=== PATIENT | male | born 1980 | race Caucasian/White ===

== ENCOUNTER 2016-08-16 20:13 | Inpatient (IN) | payer OTHER, MEDICARE, MEDICAID ==
[2016-08-16 20:36] LABS: AUTOMATED NEUTROPHIL # 6.8 TH/MM3 (1.8-7.7); BASOPHIL # 0.1 TH/MM3 (0-0.2); EOSINOPHIL # 0.2 TH/MM3 (0-0.4); HEMATOCRIT 35.7 % (39.0-51.0); HEMO FLAGS DIFF FINAL; LYMPH % 33.9 % (9.0-44.0); LYMPHOCYTE # 4.2 TH/MM3 (1.0-4.8); MEAN CELL VOLUME 84.1 FL (80.0-100.0); MEAN CORPUSCULAR HEMOGLOBIN 29.4 PG (27.0-34.0); MEAN CORPUSCULAR HGB CONC 34.9 % (32.0-36.0); MONO % 8.5 % (0.0-8.0); NEUT % 54.6 % (16.0-70.0); PLATELET COUNT 309 TH/MM3 (150-450); RED BLOOD COUNT 4.25 MIL/MM3 (4.50-5.90); RED CELL DISTRIBUTION WIDTH 13.5 % (11.6-17.2); WHITE BLOOD COUNT 12.4 TH/MM3 (4.0-11.0)
[2016-08-16 20:40] VITALS: O2SAT 100
[2016-08-16 20:46] LABS: APTT (PATIENT) 25.8 SEC (24.3-30.1); PROTHROMBIN TIME - PATIENT 10.9 SEC (9.8-11.6)
[2016-08-16] MEDS ORDERED: ceFAZolin 2 GM PREMIX 50 ML IV ONE (21:00)
[2016-08-16] MEDS ORDERED: SODIUM CHLOR 0.9% 1000 ML INJ 1,000 ML IV ONE ×2 (21:00→22:15)
[2016-08-16] MEDS ORDERED: SUCCINYLCHOLINE CHLORIDE 200 MG/10 ML VIAL IV ONE (21:00)
[2016-08-16] MEDS ORDERED: DIPHTH/TETANUS/ACEL PERTUSSIS (BOOSTER) 0.5 ML VIAL/PFS IM ONE (21:00)
[2016-08-16] MEDS ORDERED: MANNITOL 12.5 GM/50 ML VIAL IV ONE (21:15)
[2016-08-16] MEDS ORDERED: SODIUM CHLOR 0.9% 1000 ML INJ 1,000 ML IV SCH (21:15)
[2016-08-16 21:17] LABS: BLOOD GAS CARBOXYHEMOGLOBIN 4.6 % (0-4); BLOOD GAS HCO3 18 mmol/L (22-26); BLOOD GAS METHEMOGLOBIN 1.1 % (0-2); BLOOD GAS O2 HGB SATURATION 94 % (90-100); BLOOD GAS OXYGEN CONTENT 14.8 Vol % (12.0-20.0); BLOOD GAS PCO2 39 mmHg (38-42); BLOOD GAS PO2 579 mmHg (61-120); CRITICAL VALUE YES; DRAW SITE LT RADIAL; FIO2 100 %; NUMBER OF ARTERIAL PUNCTURES 1; OXYGEN DEVICE VENTILATOR; STAT YES; TEMP CORR TO 98.6; ULNAR PULSE PRESENT; VENT SETTINGS PRVC/26/550/1.0/+8
[2016-08-16 21:19] LABS: ANION GAP 10 MEQ/L (5-15); AST (GOT) 153 U/L (15-37); BICARBONATE 23.9 MEQ/L (21.0-32.0); BLOOD UREA NITROGEN 11 MG/DL (7-18); CHLORIDE 107 MEQ/L (98-107); GLOMERULAR FILTRATION RATE 68 ML/MIN (>89); POTASSIUM 4.1 MEQ/L (3.5-5.1); SODIUM (NA) 141 MEQ/L (136-145)
[2016-08-16 21:30] LABS: ALKALINE PHOSPHATASE 100 U/L (45-117); ALT (GPT) 76 U/L (12-78); TOTAL BILIRUBIN ADULT 0.4 MG/DL (0.2-1.0)
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
[2016-08-16] MEDS ORDERED: IOHEXOL 350 MG/ML 10 ML VIAL (for RAD DIAG) IV ONE (21:33)
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
[2016-08-16 21:42] LABS: AMPHETAMINE, URINE NEG (NEG); BARBITURATES, URINE NEG (NEG); COCAINE, URINE POS (NEG)
[2016-08-16] MEDS ORDERED: PANTOPRAZOLE SODIUM 40 MG VIAL IVP SCH (21:45)
[2016-08-16] MEDS ORDERED: SODIUM CHLORIDE 0.9% FLUSH 5 ML FLUSH IVF PRN (21:45)
[2016-08-16] MEDS ORDERED: MAGNESIUM HYDROXIDE SUSP 30 ML CUP PO PRN (21:45)
[2016-08-16] MEDS ORDERED: MISCELLANEOUS NURSING INFORMATION XX SCH ×2 (21:45→23:45)
[2016-08-16] MEDS ORDERED: CHLORHEXIDINE GLUCONATE 2 % 1 PACK (2 CLOTHS) TOP PRN ×2 (21:45→23:45)
[2016-08-16] MEDS ORDERED: ONDANSETRON HCL 4 MG/2 ML VIAL IV PRN ×2 (21:45→23:45)
[2016-08-16] MEDS ORDERED: MIDAZOLAM HCL 5 MG/ML VIAL (1 ML) ONE (21:48)
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
[2016-08-16] MEDS ORDERED: PROPOFOL 1000 MG/100 ML INJ 100 ML ONE (21:59)
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
[2016-08-16] MEDS ORDERED: NOREPINEPHRINE 4 MG/4 ML AMP ONE (22:07)
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
[2016-08-16] MEDS ORDERED: NOREPINEPHRINE INJ 4 MG in SODIUM CHLOR 0.9% 250 ML INJ 246 ML IV SCH (22:15)
[2016-08-16] MEDS ORDERED: TERBUTALINE INJ 1 MG/ML AMP SQ PRN (22:15)
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
--- NOTE | 2016-08-16 22:47 | PD.OP ---
Operative Report Date of Surgery: Aug 16, 2016 Preoperative Diagnosis: (1) Diffuse axonal brain injury (2) SAH (subarachnoid hemorrhage) Postoperative Diagnosis: (1) Diffuse axonal brain injury (2) SAH (subarachnoid hemorrhage) Procedure: Placement of right frontal ICP monitor Anesthesia: IV and local sedation with 1/5 % lidocaine 3cc and iV propofol Surgeon: Agusto Hammer Netezza Architect(s): RN Operation and Findings: Initial ICP 3 with temp of 30.3 deg Agusto Hammer Aug 16, 2016 22:47
--- NOTE | 2016-08-16 23:23 | PD.PROCEDR ---
Procedure Note Procedure DATE: 08/16/16 CENTRAL LINE PLACEMENT: Right internal jugular vein. Ultrasound-guided INDICATION: Central venous access CONSENT CT was done emergently as patient is in extremis and he has a Arnaldo Machado without available capacitated healthcare surrogate to consent DESCRIPTION OF THE PROCEDURE The patient was placed in supine position, mild Trendelenburg. The skin was cleansed with Chloraprep 3. Additional barrier precautions included large sterile drape, sterile gloves, sterile gown, face mask, and hat. 1 % lidocaine was used for local anesthesia. Initial attempt at right subclavian site resulted in flash of venous blood without sustained flash so redirected attention to right IJ site. Under direct ultrasound guidance, the R IJ was noted to be collapsible. On first attempt, the vein was accessed with an introducer needle but wire did not thread. The vein was then accessed again on one attempt and the guide wire was advanced and the tract was dilated. Using Seldinger technique a 7 Maltese 20 cm antimicrobial coated triple-lumen catheter was advanced to a depth of 18 centimeters. The guide wire was removed. All ports had good return of dark venous blood and flushed easily with saline. The central line was secured with 2.0 silk. A sterile antimicrobial dressing was applied. ESTIMATED BLOOD LOSS: Minimal COMPLICATIONS: No apparent complications. STAT chest x-ray is pending. Claudine Ramirez MD Aug 16, 2016 23:23
[2016-08-16] MEDS ORDERED: MAGNESIUM SULFATE INJ 2 GM in SODIUM CHLORIDE 0.9% INJ 96 ML IV PRN (23:45)
[2016-08-16] MEDS ORDERED: POTASSIUM PHOSPHATE MONOBASIC 500 MG TAB PO/TUBE PRN (23:45)
[2016-08-16] MEDS ORDERED: SODIUM CHLORIDE 0.9% FLUSH 5 ML FLUSH IV FLUSH PRN (23:45)
[2016-08-16] MEDS ORDERED: MAGNESIUM SULFATE INJ 4 GM in SODIUM CHLORIDE 0.9% INJ 92 ML IV PRN (23:45)
[2016-08-16] MEDS ORDERED: MAGNESIUM OXIDE 400 MG TAB PO PRN (23:45)
[2016-08-16] MEDS ORDERED: SODIUM CHLORIDE 23.4% INJ 240 MEQ in SYRINGE/BAG 1 EA IV ONE (23:45)
[2016-08-16] MEDS ORDERED: DOCUSATE SODIUM 100 MG CAP TUBE SCH (23:45)
[2016-08-16] MEDS ORDERED: POTASSIUM CL 40 MEQ/30 ML LIQ UDC PO/TUBE PRN ×2 (23:45)
[2016-08-16] MEDS ORDERED: RESP: ALBUTEROL 2.5 MG/3 ML NEB (PRN) INH (23:45)
[2016-08-16] MEDS ORDERED: POTASSIUM PHOSPHATE MONOBASIC 500 MG TAB PO PRN (23:45)
[2016-08-16] MEDS ORDERED: SODIUM PHOSPHATE INJ 30 MMOL in SODIUM CHLOR 0.9% 250 ML INJ 240 ML IV PRN (23:45)
[2016-08-16] MEDS: 3% SALINE INJ 500 ML IV SCH (23:48)
--- NOTE | 2016-08-16 23:50 | RADRPT ---
EXAM DATE/TIME: 08/16/2016 23:28 [facility] COMPARISON: CT THORAX W CONTRAST, August 16, 2016, 20:37. INDICATIONS : Central line placement. MEDICAL HISTORY : Unobtainable. SURGICAL HISTORY : Unobtainable. ENCOUNTER: Subsequent ACUITY: 1 day PAIN SCORE: Non-responsive. LOCATION: Bilateral chest FINDINGS: Lungs appear reasonably clear. The mild upper lobe consolidation on the left and basilar consolidatio n on the right evident by CT not clearly seen on this x-ray. No pleural effusion. No perceptible pneu mothorax. Heart size stable, normal. Patient remains intubated. Endotracheal tube tip is about 3 cm above the susan. A nasogastric tube w ith tip in the stomach remains in place. The side hole is several centimeters below the GE junction. There is gastric distention noted and was also present on the CT. A new right internal jugular central venous catheter has been placed with tip at the atrial caval shawn ction. CONCLUSION: 1. New right IJ central venous catheter with tip at atriocaval junction. No pneumothorax or other acu te complication. 2. Endotracheal tube and nasogastric tube remain in place. Distended stomach. Is the NG tube hooked t o suction? 3. Radiographically clear lungs. Arnaldo Mendez MD on August 16, 2016 at 23:46 Board Certified Radiologist. This report was verified electronically.
[2016-08-16] MEDS: SODIUM CHLOR 0.9% 1000 ML INJ 1,000 ML IV SCH (23:51)
[2016-08-17] VITALS (11 sets, daily range): BP systolic 130–154; BP diastolic 70–85; PULSE 74–82; RESP 18–19; TEMP 99.3–100.2; O2SAT 100
[2016-08-17] MEDS: fentaNYL DRIP 250 ML IV SCH
[2016-08-17] MEDS: MIDAZOLAM HCL 2 MG/2 ML VIAL IV PUSH PRN (00:04)
[2016-08-17] MEDS ORDERED: SODIUM CHLORIDE 23.4% INJ 240 MEQ in SYRINGE/BAG 1 EA IV PRN (01:45)
[2016-08-17 01:59] LABS: HEMATOCRIT 28.8 % (39.0-51.0); REVIEW FLAG FINAL
[2016-08-17] MEDS: PROPOFOL 1000 MG/100 ML INJ 100 ML IV SCH ×4 (03:30→19:58)
[2016-08-17] MEDS ORDERED: CHLORHEXIDINE GLUCONATE 2 % 1 PACK (2 CLOTHS) TOP SCH (04:00)
[2016-08-17] MEDS: CHLORHEXIDINE GLUCONATE 2 % 1 PACK (2 CLOTHS) TOP SCH (04:00)
[2016-08-17 05:12] LABS: BLOOD GAS BASE EXCESS -2.5 mmol/L (-2-2); BLOOD GAS CARBOXYHEMOGLOBIN 1.1 % (0-4); BLOOD GAS HCO3 21 mmol/L (22-26); BLOOD GAS O2 HGB SATURATION 97 % (90-100); BLOOD GAS OXYGEN CONTENT 14.3 Vol % (12.0-20.0); BLOOD GAS PCO2 33 mmHg (38-42); BLOOD GAS PO2 184 mmHg (61-120); BLOOD GAS TOTAL HGB 10.1 G/DL (12.0-16.0); CRITICAL VALUE NO; DRAW SITE ALINE; FIO2 40 %; OXYGEN DEVICE VENTILATOR; STAT NO; TEMP CORR TO 98.6; ULNAR PULSE PRESENT; VENT SETTINGS PRVC/22/550/0.9/+5
[2016-08-17 06:01] LABS: AUTOMATED NEUTROPHIL # 6.8 TH/MM3 (1.8-7.7); BASOPHIL % 0.3 % (0.0-2.0); EOSINOPHIL # 0.1 TH/MM3 (0-0.4); EOSINOPHIL % 0.7 % (0.0-4.0); HEMATOCRIT 27.5 % (39.0-51.0); HEMO FLAGS DIFF FINAL; LYMPHOCYTE # 1.1 TH/MM3 (1.0-4.8); MEAN CELL VOLUME 83.5 FL (80.0-100.0); MEAN CORPUSCULAR HEMOGLOBIN 29.3 PG (27.0-34.0); MONO % 7.2 % (0.0-8.0); NEUT % 78.8 % (16.0-70.0); PLATELET COUNT 202 TH/MM3 (150-450); RED BLOOD COUNT 3.29 MIL/MM3 (4.50-5.90); RED CELL DISTRIBUTION WIDTH 13.5 % (11.6-17.2); WHITE BLOOD COUNT 8.7 TH/MM3 (4.0-11.0)
--- NOTE | 2016-08-17 06:05 | RADRPT ---
EXAM DATE/TIME: 08/17/2016 05:00 [facility] COMPARISON: CHEST SINGLE AP, August 16, 2016, 23:28. INDICATIONS : Evaluate after respiratory failure. MEDICAL HISTORY : None. SURGICAL HISTORY : None. ENCOUNTER: Subsequent ACUITY: 2 days PAIN SCORE: Non-responsive. LOCATION: Bilateral chest FINDINGS: No infiltrate, effusion or pneumothorax. Heart size stable, within normal limits. Endotracheal tube tip is about 3 cm above the susan. Nasogastric tube has its tip in the stomach. Th ere is a right internal jugular central venous catheter again seen, tip at the atriocaval junction. CONCLUSION: Lungs remain clear. No change lines and tubes. Arnaldo Mendez MD on August 17, 2016 at 6:03 Board Certified Radiologist. This report was verified electronically.
[2016-08-17 06:28] LABS: ALKALINE PHOSPHATASE 94 U/L (45-117); ALT (GPT) 63 U/L (12-78); ANION GAP 9 MEQ/L (5-15); AST (GOT) 129 U/L (15-37); BICARBONATE 21.8 MEQ/L (21.0-32.0); BLOOD UREA NITROGEN 10 MG/DL (7-18); CHLORIDE 115 MEQ/L (98-107); GLOMERULAR FILTRATION RATE 102 ML/MIN (>89); POTASSIUM 3.5 MEQ/L (3.5-5.1); SODIUM (NA) 146 MEQ/L (136-145); TOTAL BILIRUBIN ADULT 0.4 MG/DL (0.2-1.0)
[2016-08-17] MEDS: CHLORHEXIDINE 0.12% (ORAL KIT) 15 ML CUP MT SCH ×2 (07:42→21:38)
[2016-08-17] MEDS: SODIUM CHLOR 0.9% 1000 ML INJ 1,000 ML IV SCH ×2 (07:42→17:43)
[2016-08-17] MEDS ORDERED: NOREPINEPHRINE INJ 4 MG in SODIUM CHLOR 0.9% 250 ML INJ 246 ML IV SCH (08:00)
[2016-08-17] MEDS ORDERED: RESP: ALBUTEROL 2.5 MG/3 ML NEB (PRN) NEB (08:00)
[2016-08-17] MEDS: INSULIN ASPART SUPPLEMENTAL SCALE SQ SCH ×3 (08:00→20:00)
[2016-08-17] MEDS ORDERED: GLUCAGON 1 MG/ML VIAL OTHER PRN (08:00)
[2016-08-17] MEDS: DOCUSATE SODIUM 100 MG/10 ML UDC TUBE SCH ×2 (08:16→21:38)
[2016-08-17] MEDS: PANTOPRAZOLE SODIUM 40 MG VIAL IV SCH (08:16)
[2016-08-17] MEDS: SODIUM CHLORIDE 0.9% FLUSH 5 ML FLUSH IV FLUSH SCH ×2 (08:17→21:00)
[2016-08-17] MEDS ORDERED: ATROPINE SULFATE 1 MG/10 ML SYRINGE ONE (08:28)
[2016-08-17] MEDS ORDERED: LIDOCAINE HCL 2% 100 MG/5 ML SYRINGE ONE (08:28)
[2016-08-17] MEDS ORDERED: EPINEPHrine HCL (1:10,000) 1 MG/10 ML SYRINGE ONE (08:28)
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
[2016-08-17] MEDS ORDERED: IOHEXOL 350 MG/ML 10 ML VIAL (for RAD DIAG) IV ONE (09:00)
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
[2016-08-17] MEDS: levETIRAcetam INJ 500 MG in SODIUM CHLORIDE 0.9% INJ 100 ML IV SCH ×2 (09:39→21:38)
[2016-08-17] MEDS: MUPIROCIN 2% OINT 1 APPLIC/GM SYR EACH NARE SCH ×2 (09:39→21:38)
[2016-08-17] MEDS: RESP: ALBUTEROL 2.5 MG/IPRATROPIUM 0.5 MG NEB (SCH) NEB ×3 (10:00→20:38)
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
[2016-08-17] MEDS: ACETAMINOPHEN 650 MG/20.3 ML UDC TUBE PRN (16:49)
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
[2016-08-18] VITALS (15 sets, daily range): BP systolic 115–142; BP diastolic 53–70; PULSE 54–74; RESP 18–20; TEMP 97.2–99.5; O2SAT 100
[2016-08-18] MEDS: BACITRACIN TOP OINT 15 GM TUBE TOP SCH ×3 (00:01→20:50)
[2016-08-18] MEDS: INSULIN ASPART SUPPLEMENTAL SCALE SQ SCH ×4 (02:00→20:00)
[2016-08-18] MEDS: SODIUM CHLOR 0.9% 1000 ML INJ 1,000 ML IV SCH ×3 (03:31→23:31)
[2016-08-18] MEDS: PROPOFOL 1000 MG/100 ML INJ 100 ML IV SCH ×3 (03:40→18:01)
[2016-08-18] MEDS: RESP: ALBUTEROL 2.5 MG/IPRATROPIUM 0.5 MG NEB (SCH) NEB ×4 (03:53→21:25)
[2016-08-18] MEDS: CHLORHEXIDINE GLUCONATE 2 % 1 PACK (2 CLOTHS) TOP SCH (04:00)
[2016-08-18] MEDS: fentaNYL DRIP 250 ML IV SCH ×2 (05:00→08:44)
[2016-08-18 05:24] LABS: BLOOD GAS BASE EXCESS -1.6 mmol/L (-2-2); BLOOD GAS HCO3 23 mmol/L (22-26); BLOOD GAS METHEMOGLOBIN 1.1 % (0-2); BLOOD GAS O2 HGB SATURATION 97 % (90-100); BLOOD GAS OXYGEN CONTENT 11.2 Vol % (12.0-20.0); BLOOD GAS PCO2 42 mmHg (38-42); BLOOD GAS PO2 170 mmHg (61-120); BLOOD GAS TOTAL HGB 7.9 G/DL (12.0-16.0); CRITICAL VALUE NO; DRAW SITE ALINE; FIO2 40 %; OXYGEN DEVICE VENTILATOR; STAT NO; TEMP CORR TO 98.6; ULNAR PULSE PRESENT; VENT SETTINGS PRVC/18/550/0.8/+5
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
[2016-08-18 05:29] LABS: HEMATOCRIT 22.7 % (39.0-51.0); MEAN CORPUSCULAR HEMOGLOBIN 29.8 PG (27.0-34.0); MEAN CORPUSCULAR HGB CONC 35.1 % (32.0-36.0); PLATELET COUNT 149 TH/MM3 (150-450); RED BLOOD COUNT 2.67 MIL/MM3 (4.50-5.90); RED CELL DISTRIBUTION WIDTH 13.7 % (11.6-17.2); REVIEW FLAG FINAL; WHITE BLOOD COUNT 8.2 TH/MM3 (4.0-11.0)
[2016-08-18 06:47] LABS: BICARBONATE 23.1 MEQ/L (21.0-32.0); POTASSIUM 3.7 MEQ/L (3.5-5.1)
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
[2016-08-18] MEDS: CHLORHEXIDINE 0.12% (ORAL KIT) 15 ML CUP MT SCH ×2 (08:00→20:13)
[2016-08-18] MEDS: levETIRAcetam INJ 500 MG in SODIUM CHLORIDE 0.9% INJ 100 ML IV SCH ×2 (08:43→20:50)
[2016-08-18] MEDS: MUPIROCIN 2% OINT 1 APPLIC/GM SYR EACH NARE SCH ×2 (08:43→20:50)
[2016-08-18] MEDS: PANTOPRAZOLE SODIUM 40 MG VIAL IV SCH (08:44)
[2016-08-18] MEDS: 3% SALINE INJ 500 ML IV SCH (08:44)
[2016-08-18] MEDS: SODIUM CHLORIDE 0.9% FLUSH 5 ML FLUSH IV FLUSH SCH ×2 (08:44→20:45)
[2016-08-18] MEDS: DOCUSATE SODIUM 100 MG/10 ML UDC TUBE SCH ×2 (08:44→20:50)
--- NOTE | 2016-08-18 08:55 | PD.OP ---
cc: Carson Corona MD Operative Report Date of Surgery: Aug 18, 2016 Preoperative Diagnosis: left acetabular fracture with hip dislocation Postoperative Diagnosis: Procedure: closed reduction of left hip fracture dislocation with manipulation and placement of skeletal traction Anesthesia: General Surgeon: Carson Corona Tractor Mechanic Helper(s): Alden MERCADO Operation and Findings: Renny was seen and evaluated. CT scan yesterday revealed recurrent hip dislocation with acetabular fracture. Informed consent was obtained from patient's father. Timeout procedure was performed. The procedure was performed in the intensive care unit because of patient's severe closed head injury. Patient was not cleared for open surgical treatment of injuries. Skin was prepped with alcohol followed by ChloraPrep. A small incision was made over the distal femur. A skeletal traction pin was now placed into the distal femur. Care was taken to avoid injury to neurovascular structures. At this point the hip was now reduced. Traction was applied, and the hip was manipulated into a reduced position. Skeletal traction was now applied. Dressings were applied. Patient will need definitive fixation of his left acetabulum and right femur when he is medically stable. Carson Corona MD Aug 18, 2016 08:55
[2016-08-18 09:08] LABS: BLOOD GAS BASE EXCESS -1.3 mmol/L (-2-2); BLOOD GAS CARBOXYHEMOGLOBIN 1.2 % (0-4); BLOOD GAS HCO3 23 mmol/L (22-26); BLOOD GAS METHEMOGLOBIN 0.9 % (0-2); BLOOD GAS O2 HGB SATURATION 97 % (90-100); BLOOD GAS OXYGEN CONTENT 11.7 Vol % (12.0-20.0); BLOOD GAS PCO2 38 mmHg (38-42); BLOOD GAS PO2 166 mmHg (61-120); BLOOD GAS TOTAL HGB 8.3 G/DL (12.0-16.0); CRITICAL VALUE NO; DRAW SITE ART LINE; FIO2 40 %; OXYGEN DEVICE VENTILATOR; STAT NO; TEMP CORR TO 98.6; ULNAR PULSE PRESENT; VENT SETTINGS PRVC/20/550/IT0.9/+5
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
[2016-08-18 14:45] LABS: BICARBONATE 24.3 MEQ/L (21.0-32.0); MAGNESIUM 2.3 MG/DL (1.5-2.5); POTASSIUM 3.7 MEQ/L (3.5-5.1)
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
[2016-08-19] VITALS (17 sets, daily range): BP systolic 109–132; BP diastolic 49–67; PULSE 53–66; RESP 20; TEMP 97.2–100.2; O2SAT 97–100
[2016-08-19] MEDS: INSULIN ASPART SUPPLEMENTAL SCALE SQ SCH ×4 (01:44→20:00)
[2016-08-19] MEDS: 3% SALINE INJ 500 ML IV SCH (01:55)
[2016-08-19] MEDS: RESP: ALBUTEROL 2.5 MG/IPRATROPIUM 0.5 MG NEB (SCH) NEB ×4 (02:55→20:24)
[2016-08-19] MEDS: CHLORHEXIDINE GLUCONATE 2 % 1 PACK (2 CLOTHS) TOP SCH (04:00)
[2016-08-19] MEDS: PROPOFOL 1000 MG/100 ML INJ 100 ML IV SCH ×2 (04:17→14:40)
[2016-08-19 05:06] LABS: AUTOMATED NEUTROPHIL # 8.6 TH/MM3 (1.8-7.7); BASOPHIL % 0.4 % (0.0-2.0); EOSINOPHIL # 0.1 TH/MM3 (0-0.4); EOSINOPHIL % 0.8 % (0.0-4.0); LYMPH % 11.5 % (9.0-44.0); LYMPHOCYTE # 1.2 TH/MM3 (1.0-4.8); MEAN CORPUSCULAR HEMOGLOBIN 29.1 PG (27.0-34.0); MEAN CORPUSCULAR HGB CONC 33.8 % (32.0-36.0); MONO % 5.6 % (0.0-8.0); NEUT % 81.7 % (16.0-70.0); PLATELET COUNT 156 TH/MM3 (150-450); RED CELL DISTRIBUTION WIDTH 13.6 % (11.6-17.2); WHITE BLOOD COUNT 10.5 TH/MM3 (4.0-11.0)
[2016-08-19 05:10] LABS: HEMO FLAGS DIFF FINAL
[2016-08-19 05:14] LABS: HEMATOCRIT 20.6 % (39.0-51.0)
[2016-08-19 05:26] LABS: BICARBONATE 26.6 MEQ/L (21.0-32.0); CALCIUM-PROTEIN CORRECTED 8.5 MG/DL (8.5-10.1); MAGNESIUM 2.3 MG/DL (1.5-2.5); POTASSIUM 3.5 MEQ/L (3.5-5.1); TOTAL BILIRUBIN ADULT 0.3 MG/DL (0.2-1.0)
[2016-08-19 05:48] LABS: BLOOD GAS BASE EXCESS -4.5 mmol/L (-2-2); BLOOD GAS CARBOXYHEMOGLOBIN 1.2 % (0-4); BLOOD GAS HCO3 19 mmol/L (22-26); BLOOD GAS O2 HGB SATURATION 97 % (90-100); BLOOD GAS OXYGEN CONTENT 14.6 Vol % (12.0-20.0); BLOOD GAS PCO2 32 mmHg (38-42); BLOOD GAS PO2 164 mmHg (61-120); BLOOD GAS TOTAL HGB 10.5 G/DL (12.0-16.0); CRITICAL VALUE NO; OXYGEN DEVICE VENTILATOR; TEMP CORR TO 98.6
--- NOTE | 2016-08-19 05:48 | RADRPT ---
EXAM DATE/TIME: 08/19/2016 04:23 [place] COMPARISON: CHEST SINGLE AP, August 18, 2016, 5:09. INDICATIONS : Shortness of breath. MEDICAL HISTORY : None. SURGICAL HISTORY : None. ENCOUNTER: Subsequent ACUITY: 4 - 6 days PAIN SCORE: Non-responsive. LOCATION: Bilateral chest FINDINGS: The cardiac silhouette is normal in transverse diameter. Support lines and tubes are in satisfactory position. There is mild perihilar edema. This is new when compared with the prior exam. CONCLUSION: 1. Perihilar pulmonary edema. This is new when compared with the prior exam. Leonidas Franco MD on August 19, 2016 at 5:47 Board Certified Radiologist. This report was verified electronically.
[2016-08-19 05:49] LABS: DRAW SITE ART LINE; FIO2 40 %; STAT NO; VENT SETTINGS PRVC/AC
[2016-08-19] MEDS ORDERED: TERBUTALINE INJ 1 MG/ML AMP SQ PRN (06:45)
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
[2016-08-19] MEDS: CHLORHEXIDINE 0.12% (ORAL KIT) 15 ML CUP MT SCH ×2 (08:00→20:56)
[2016-08-19] MEDS: POTASSIUM PHOSPHATE INJ 30 MMOL in SODIUM CHLOR 0.9% 250 ML INJ 250 ML IV PRN (08:01)
[2016-08-19] MEDS: MUPIROCIN 2% OINT 1 APPLIC/GM SYR EACH NARE SCH ×2 (08:07→20:57)
[2016-08-19] MEDS: BACITRACIN TOP OINT 15 GM TUBE TOP SCH ×2 (08:07→20:57)
[2016-08-19] MEDS: levETIRAcetam INJ 500 MG in SODIUM CHLORIDE 0.9% INJ 100 ML IV SCH ×2 (08:07→21:01)
[2016-08-19] MEDS: PANTOPRAZOLE SODIUM 40 MG VIAL IV SCH (08:07)
[2016-08-19] MEDS: DOCUSATE SODIUM 100 MG/10 ML UDC TUBE SCH ×2 (08:08→21:00)
[2016-08-19] MEDS: SODIUM CHLORIDE 0.9% FLUSH 5 ML FLUSH IV FLUSH SCH ×2 (09:00→20:57)
[2016-08-19] MEDS ORDERED: HEPARIN SODIUM - SQ 10,000 UNITS/ML VIAL ONE (09:37)
[2016-08-19] MEDS ORDERED: GENTAMICIN SULFATE 80 MG/2 ML VIAL ONE (09:37)
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
[2016-08-19] MEDS ORDERED: SODIUM CHLOR 0.9% 250 ML INJ 250 ML IV ONE (11:00)
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
[2016-08-19] MEDS ORDERED: TRANEXAMIC ACID INJ 909 MG in SODIUM CHLORIDE 0.9% INJ 100 ML IV SCH (11:30)
[2016-08-19] MEDS: SODIUM CHLOR 0.9% 1000 ML INJ 1,000 ML IV SCH ×2 (12:45→19:31)
[2016-08-19] MEDS ORDERED: ceFAZolin INJ 1,000 MG VIAL ONE (14:49)
[2016-08-19] MEDS ORDERED: VANCOMYCIN HCL 1000 MG VIAL ONE (14:49)
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
[2016-08-19] MEDS ORDERED: fentaNYL CITRATE 250 MCG/5 ML AMP ONE (16:01)
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
[2016-08-19 18:06] LABS: HEMATOCRIT 26.1 % (39.0-51.0); REVIEW FLAG FINAL
[2016-08-20] VITALS (15 sets, daily range): BP systolic 109–136; BP diastolic 54–74; PULSE 50–68; RESP 18; TEMP 98.8–99.6; O2SAT 96–100
[2016-08-20] MEDS: fentaNYL DRIP 250 ML IV SCH ×2 (00:25→17:17)
[2016-08-20] MEDS: INSULIN ASPART SUPPLEMENTAL SCALE SQ SCH ×4 (02:00→20:00)
[2016-08-20] MEDS: RESP: ALBUTEROL 2.5 MG/IPRATROPIUM 0.5 MG NEB (SCH) NEB ×4 (03:50→21:50)
[2016-08-20] MEDS: CHLORHEXIDINE GLUCONATE 2 % 1 PACK (2 CLOTHS) TOP SCH (04:00)
[2016-08-20] MEDS: SODIUM CHLOR 0.9% 1000 ML INJ 1,000 ML IV SCH ×2 (04:34→22:57)
--- NOTE | 2016-08-20 05:01 | RADRPT ---
EXAM DATE/TIME: 08/20/2016 04:16 [facility] COMPARISON: CHEST SINGLE AP, August 19, 2016, 4:23. INDICATIONS : Shortness of breath. MEDICAL HISTORY : Non-responsive SURGICAL HISTORY : Non-responsive ENCOUNTER: Subsequent ACUITY: 4 - 6 days PAIN SCORE: Non-responsive. LOCATION: Bilateral chest FINDINGS: The cardiac silhouette is enlarged in transverse diameter. There findings of alveolar edema worse piotr n on the prior study. Small bilateral pleural effusions are identified. CONCLUSION: 1. Worsening pulmonary edema. Leonidas Franco MD on August 20, 2016 at 4:59 Board Certified Radiologist. This report was verified electronically.
[2016-08-20 05:28] LABS: BLOOD GAS BASE EXCESS 0.1 mmol/L (-2-2); BLOOD GAS CARBOXYHEMOGLOBIN 1.6 % (0-4); BLOOD GAS HCO3 24 mmol/L (22-26); BLOOD GAS METHEMOGLOBIN 1.1 % (0-2); BLOOD GAS OXYGEN CONTENT 11.5 Vol % (12.0-20.0); BLOOD GAS PCO2 34 mmHg (38-42); BLOOD GAS PO2 109 mmHg (61-120); BLOOD GAS TOTAL HGB 8.4 G/DL (12.0-16.0); TEMP CORR TO 98.6
[2016-08-20 05:29] LABS: BLOOD GAS O2 HGB SATURATION 96 % (90-100); CRITICAL VALUE NO; OXYGEN DEVICE VENTILATOR
[2016-08-20 05:30] LABS: DRAW SITE ART LINE; FIO2 40 %; STAT NO
[2016-08-20 05:36] LABS: AUTOMATED NEUTROPHIL # 7.9 TH/MM3 (1.8-7.7); BASOPHIL % 0.4 % (0.0-2.0); EOSINOPHIL # 0.2 TH/MM3 (0-0.4); EOSINOPHIL % 1.9 % (0.0-4.0); HEMO FLAGS DIFF FINAL; LYMPH % 12.9 % (9.0-44.0); LYMPHOCYTE # 1.3 TH/MM3 (1.0-4.8); MEAN CELL VOLUME 85.6 FL (80.0-100.0); MEAN CORPUSCULAR HEMOGLOBIN 30.5 PG (27.0-34.0); MEAN CORPUSCULAR HGB CONC 35.6 % (32.0-36.0); MONO % 5.4 % (0.0-8.0); NEUT % 79.4 % (16.0-70.0); PLATELET COUNT 165 TH/MM3 (150-450); RED BLOOD COUNT 2.81 MIL/MM3 (4.50-5.90); RED CELL DISTRIBUTION WIDTH 13.7 % (11.6-17.2); WHITE BLOOD COUNT 9.9 TH/MM3 (4.0-11.0)
[2016-08-20 05:57] LABS: ALT (GPT) 31 U/L (12-78); ANION GAP 8 MEQ/L (5-15); AST (GOT) 48 U/L (15-37); BICARBONATE 24.9 MEQ/L (21.0-32.0); BLOOD UREA NITROGEN 14 MG/DL (7-18); CHLORIDE 121 MEQ/L (98-107); GLOMERULAR FILTRATION RATE 168 ML/MIN (>89); MAGNESIUM 2.3 MG/DL (1.5-2.5); POTASSIUM 3.4 MEQ/L (3.5-5.1); SODIUM (NA) 154 MEQ/L (136-145)
[2016-08-20 05:59] LABS: ALKALINE PHOSPHATASE 59 U/L (45-117); TOTAL BILIRUBIN ADULT 0.7 MG/DL (0.2-1.0)
[2016-08-20] MEDS: POTASSIUM PHOSPHATE INJ 30 MMOL in SODIUM CHLOR 0.9% 250 ML INJ 250 ML IV PRN (07:03)
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
[2016-08-20] MEDS: NOREPINEPHRINE INJ 4 MG in SODIUM CHLOR 0.9% 250 ML INJ 246 ML IV SCH ×2 (08:00→22:57)
[2016-08-20] MEDS: CHLORHEXIDINE 0.12% (ORAL KIT) 15 ML CUP MT SCH ×2 (08:00→20:30)
[2016-08-20] MEDS: BACITRACIN TOP OINT 15 GM TUBE TOP SCH ×2 (09:00→20:31)
[2016-08-20] MEDS: SODIUM CHLORIDE 0.9% FLUSH 5 ML FLUSH IV FLUSH SCH ×2 (09:00→20:30)
[2016-08-20] MEDS: PANTOPRAZOLE SODIUM 40 MG VIAL IV SCH (09:48)
[2016-08-20] MEDS: DOCUSATE SODIUM 100 MG/10 ML UDC TUBE SCH ×2 (09:48→20:31)
[2016-08-20] MEDS: levETIRAcetam INJ 500 MG in SODIUM CHLORIDE 0.9% INJ 100 ML IV SCH ×2 (09:48→20:29)
[2016-08-20] MEDS: MUPIROCIN 2% OINT 1 APPLIC/GM SYR EACH NARE SCH ×2 (09:49→20:30)
[2016-08-20] MEDS ORDERED: FUROSEMIDE 40 MG/4 ML VIAL IV PUSH ONE (10:00)
[2016-08-20] MEDS: LACTULOSE SYRUP 20 GM/30 ML CUP PO SCH (10:26)
--- NOTE | 2016-08-20 11:05 | PD.OP ---
Operative Report Date of Surgery: Aug 20, 2016 Preoperative Diagnosis: (1) Nikky-prosthetic femur fracture at tip of prosthesis Postoperative Diagnosis: (1) Nikky-prosthetic femur fracture at tip of prosthesis Procedure: Application of traction pin right femur Surgeon: Gordon Olea Lifter(s): none Operation and Findings: Right Distal femur was prepped with duraprep. An incision was made to the lateral distal femur. A centrally threaded traction pin was placed with sterile technique. An incision was made medially to allow the pin to penetrate the skin. Both sides of the leg were bandaged with xeroform/4x4s/paper tape. A traction bow was placed and the patient was placed into 15lbs of skeletal traction. Gordon Olea Aug 20, 2016 11:04
--- NOTE | 2016-08-20 12:28 | RADRPT ---
EXAM DATE/TIME: 08/20/2016 11:51 [facility] COMPARISON: CHEST SINGLE AP, August 20, 2016, 4:16. INDICATIONS : Dubhoff placement MEDICAL HISTORY : None. SURGICAL HISTORY : None. ENCOUNTER: Subsequent ACUITY: 4 - 6 days PAIN SCORE: Non-responsive. LOCATION: abdomen FINDINGS: The exam demonstrates a weighted feeding tube to be in the stomach. There is a nasogastric tube prese nt within the stomach as well. The bowel gas pattern is within normal limits. The lung bases are mal r. CONCLUSION: 1. The tip of the patient's feeding tube is within the fundus of the stomach. Brandon Davenport MD on August 20, 2016 at 12:26 Board Certified Radiologist. This report was verified electronically.
--- NOTE | 2016-08-20 12:33 | HHI.PR ---
Neuropsych Emotional Emotional: UnabletoAssess: Emotional, Anxious/Fearful, Depressed/Sad, Hostile/ Resentful, Irritable/Angry/Frustrate, Labile, Constricted/Blunted Behavior Behavior: Unable to Asses: Behavior, Coping/Acceptance, Cooperative w/ Treatment, Motivation, Frustration Tolerance/[place], Impulsive/Agitated, Suicidal/ Homicidal Risk Cognitive Cognitive: Unable to Asses: Cognitive, Attention/Concentration, Confused/ Orientation, Insight/Awareness, Judgement/Problem-Solving, Memory Psychosocial Psychosocial: Mild: Psychosocial, Family/Other Adjustment, Realistic Expectation Progress Notes/Response to Tx Contents of Sessions: Level of Consciousness Time with Patient: 30 minutes Premorbid psychological status Premorbid Cognitive, Emotional and Behavioral Status: Stable. The patient has 12 years of education but was on social security disability for a orthopedic injury. 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 Behavioral Reactions of Patient and Family/Support System: Stable. The patient s family is here from [facility], which is where they wish to bring him back to once medically stable. Emotional/Behavioral Status of Patient and Family/Support System: Stable. Pertinent issues, if appropriate to this patients clinical care, are described in detail above. Maximizing acute care outcome It is recommended that the patient be monitored for emergent behavioral impulsivity as the medical condition evolves. This patients neuropathological challenges may limit their rehabilitation potential going forward, and these challenges will require specialized therapeutic skills to maximize outcome. Additionally, the patients family is experiencing ongoing issues of adjustment given the traumatic nature of the injury, and they may benefit from ongoing psychological assistance. Anticipated Problems Ongoing areas of concern will include behavioral impulsivity, lack of insight and judgment, which is expected to improve with time and treatment. Presently , the patient is not following commands. Treatment Plan This clinician will continue to follow with you throughout the course of this patients rehabilitation treatment, and I will be available to meet with the patients family/support system to facilitate their understanding and the ongoing care of their family member. The goals of neuropsychological intervention shall be both educational and supportive to the family/support system as is deemed clinically appropriate. [facility] Level: I:No response-total assistance Diagnosis: (1) Major neurocognitive disorder as late effect of traumatic brain injury with behavioral disturbance Status: Acute (2) SAH (subarachnoid hemorrhage) Status: Acute Progress Note Narrative Ongoing follow-up of patient, who was seen within the context of daily trauma rounds and bedside, where I had the opportunity to discuss his situation with his parents. I discussed that presently the most pressing issues are medical stabilization and that any neurobehavioral or neurocognitive issues at present, are secondary to that goal. I discussed that while neuroimaging shows "structure" such studies do not show function, and that time will generally tell how such a situation shall unfold. I answered all questions the parents had at that time, and told them that I would serve as a resource to them for questions they may have in the future. I will continue to follow with you. Maurilio Hunter PhD Aug 20, 2016 12:33
[2016-08-20] MEDS: POTASSIUM CHLOR 40 MEQ PREMIX 100 ML IV PRN (14:19)
--- NOTE | 2016-08-20 16:36 | RADRPT ---
EXAM DATE/TIME: 08/20/2016 15:52 [facility] COMPARISON: No previous studies available for comparison. INDICATIONS : Hand trauma. Best images possible due to patient condition. MEDICAL HISTORY : unobtainable. SURGICAL HISTORY : unobtainable. ENCOUNTER: Subsequent ACUITY: 4 - 6 days PAIN SCORE: Non-responsive. LOCATION: Left Hand. FINDINGS: A limited two-view examination of the left hand was obtained and not a standard treated trauma series limiting the sensitivity. This demonstrates amputation of the distal half of the third distal phalan x. There is overlying soft tissue swelling. No other bony abnormalities identified. Metacarpal and ca rpal bones are intact. The joint spaces are maintained. Bony mineralization is normal. CONCLUSION: Amputation of the distal half of the third distal phalanx. Luiz Mccauley MD on August 20, 2016 at 16:33 Board Certified Radiologist. This report was verified electronically.
[2016-08-20] MEDS: PROPOFOL 1000 MG/100 ML INJ 100 ML IV SCH ×3 (17:02→22:57)
[2016-08-20 18:27] LABS: POTASSIUM 3.6 MEQ/L (3.5-5.1)
[2016-08-20] MEDS: MIDAZOLAM HCL 2 MG/2 ML VIAL IV PUSH PRN ×2 (18:27→20:30)
[2016-08-20] MEDS ORDERED: MANNITOL INJ 50 ML ONE ×2 (18:33→18:34)
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
[2016-08-20] MEDS ORDERED: SODIUM CHLORIDE 23.4% INJ 240 MEQ in SYRINGE/BAG 1 EA IV ONE (19:15)
[2016-08-20] MEDS: MIDAZOLAM 100 MG/NS 100 ML DRIP Premix IV SCH (20:47)
[2016-08-20 21:11] LABS: BLOOD GAS BASE EXCESS 1.4 mmol/L (-2-2); BLOOD GAS CARBOXYHEMOGLOBIN 1.6 % (0-4); BLOOD GAS HCO3 25 mmol/L (22-26); BLOOD GAS METHEMOGLOBIN 0.9 % (0-2); BLOOD GAS O2 HGB SATURATION 96 % (90-100); BLOOD GAS OXYGEN CONTENT 12.6 Vol % (12.0-20.0); BLOOD GAS PCO2 35 mmHg (38-42); BLOOD GAS PO2 126 mmHg (61-120); BLOOD GAS TOTAL HGB 9.2 G/DL (12.0-16.0); TEMP CORR TO 98.6
[2016-08-20 21:12] LABS: CRITICAL VALUE NO; DRAW SITE ART LINE; FIO2 40 %; OXYGEN DEVICE VENTILATOR
[2016-08-20 21:13] LABS: STAT NO
[2016-08-20] MEDS: ACETAMINOPHEN 650 MG/20.3 ML UDC TUBE PRN (21:24)
[2016-08-20 22:10] LABS: BICARBONATE 28.6 MEQ/L (21.0-32.0); POTASSIUM 3.3 MEQ/L (3.5-5.1)
--- NOTE | 2016-08-20 23:13 | EKG ---
Date Performed: 08/19/2016 Time Performed: 10:59:18 PTAGE: 35 years EKG: Sinus bradycardia rSr'(V1) - probable normal variant Borderline ECG NO PREVIOUS TRACING DOCTOR: Candace Way Interpretating Date/Time 08/20/2016 23:07:32
[2016-08-21] VITALS (11 sets, daily range): BP systolic 114–137; BP diastolic 64–83; PULSE 61–80; RESP 18; TEMP 94.8–98.1; O2SAT 97–99
[2016-08-21] MEDS ORDERED: 3% SALINE INJ 500 ML IV ONE (00:30)
[2016-08-21] MEDS: INSULIN ASPART SUPPLEMENTAL SCALE SQ SCH ×4 (01:30→20:00)
[2016-08-21] MEDS: fentaNYL DRIP 250 ML IV SCH ×2 (01:36→13:11)
[2016-08-21] MEDS: PROPOFOL 1000 MG/100 ML INJ 100 ML IV SCH ×5 (01:37→17:58)
[2016-08-21] MEDS: RESP: ALBUTEROL 2.5 MG/IPRATROPIUM 0.5 MG NEB (SCH) NEB (03:37)
[2016-08-21] MEDS: CHLORHEXIDINE GLUCONATE 2 % 1 PACK (2 CLOTHS) TOP SCH (04:00)
[2016-08-21 04:30] LABS: HEMATOCRIT 26.2 % (39.0-51.0); MEAN CELL VOLUME 85.1 FL (80.0-100.0); MEAN CORPUSCULAR HEMOGLOBIN 29.6 PG (27.0-34.0); MEAN CORPUSCULAR HGB CONC 34.8 % (32.0-36.0); PLATELET COUNT 256 TH/MM3 (150-450); RED BLOOD COUNT 3.07 MIL/MM3 (4.50-5.90); RED CELL DISTRIBUTION WIDTH 13.7 % (11.6-17.2); REVIEW FLAG FINAL; WHITE BLOOD COUNT 11.2 TH/MM3 (4.0-11.0)
[2016-08-21 04:49] LABS: BICARBONATE 29.3 MEQ/L (21.0-32.0); MAGNESIUM 2.4 MG/DL (1.5-2.5); POTASSIUM 3.2 MEQ/L (3.5-5.1)
[2016-08-21] MEDS: MIDAZOLAM 100 MG/NS 100 ML DRIP Premix IV SCH ×3 (05:05→21:15)
[2016-08-21 05:21] LABS: BLOOD GAS BASE EXCESS -0.2 mmol/L (-2-2); BLOOD GAS CARBOXYHEMOGLOBIN 1.5 % (0-4); BLOOD GAS HCO3 23 mmol/L (22-26); BLOOD GAS METHEMOGLOBIN 1.1 % (0-2); BLOOD GAS O2 HGB SATURATION 97 % (90-100); BLOOD GAS OXYGEN CONTENT 15.4 Vol % (12.0-20.0); BLOOD GAS PCO2 32 mmHg (38-42); BLOOD GAS PO2 268 mmHg (61-120); BLOOD GAS TOTAL HGB 10.8 G/DL (12.0-16.0); TEMP CORR TO 98.6
[2016-08-21 05:22] LABS: CRITICAL VALUE NO; FIO2 40 %; OXYGEN DEVICE VENTILATOR
[2016-08-21 05:23] LABS: DRAW SITE ART LINE; STAT NO
[2016-08-21] MEDS: POTASSIUM CHLOR 40 MEQ PREMIX 100 ML IV PRN ×2 (06:28→06:29)
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
[2016-08-21] MEDS: CHLORHEXIDINE 0.12% (ORAL KIT) 15 ML CUP MT SCH ×2 (08:00→20:54)
[2016-08-21] MEDS: SODIUM CHLORIDE 0.9% FLUSH 5 ML FLUSH IV FLUSH SCH ×2 (09:00→21:14)
[2016-08-21] MEDS: BACITRACIN TOP OINT 15 GM TUBE TOP SCH ×2 (09:00→21:15)
[2016-08-21] MEDS: POTASSIUM PHOSPHATE INJ 30 MMOL in SODIUM CHLOR 0.9% 250 ML INJ 250 ML IV PRN (09:08)
[2016-08-21] MEDS: NOREPINEPHRINE INJ 4 MG in SODIUM CHLOR 0.9% 250 ML INJ 246 ML IV SCH (09:33)
--- NOTE | 2016-08-21 09:57 | RADRPT ---
EXAM DATE/TIME: 08/21/2016 09:11 [facility] COMPARISON: CHEST SINGLE AP, August 20, 2016, 4:16. HAND LEFT LIMITED (2VWS), August 20, 2016, 15:52. INDICATIONS : Pulmonary edema. MEDICAL HISTORY : None. SURGICAL HISTORY : None. ENCOUNTER: Initial ACUITY: 4 - 6 days PAIN SCORE: Non-responsive. LOCATION: Bilateral chest FINDINGS: The ET tube is in good position. There is an NG tube and feeding tube within the stomach. Right jugul ar central line is in good position. There is a small right basilar effusion. The diffuse interstitial edema is resolving. CONCLUSION: 1. Small right basilar fusion. 2. Improved appearance of the parenchyma compared to previous exam. Brandon Davenport MD on August 21, 2016 at 9:54 Board Certified Radiologist. This report was verified electronically.
[2016-08-21] MEDS: LACTULOSE SYRUP 20 GM/30 ML CUP PO SCH (10:15)
[2016-08-21] MEDS: DOCUSATE SODIUM 100 MG/10 ML UDC TUBE SCH ×2 (10:15→21:13)
[2016-08-21] MEDS: PANTOPRAZOLE SODIUM 40 MG VIAL IV SCH (10:15)
[2016-08-21] MEDS: levETIRAcetam INJ 500 MG in SODIUM CHLORIDE 0.9% INJ 100 ML IV SCH ×2 (10:16→21:14)
[2016-08-21] MEDS: MUPIROCIN 2% OINT 1 APPLIC/GM SYR EACH NARE SCH ×2 (10:16→21:14)
[2016-08-21] MEDS: RESP: ALBUTEROL 2.5 MG/IPRATROPIUM 0.5 MG NEB (PRN) NEB (10:54)
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
--- NOTE | 2016-08-21 16:28 | MG ---
cc: KEEGAN HANCOCK M.D. Lab No: [id number] Date: 08/21/16 Age: Sex: M Race: TECHNIQUE 17 channel EEG. DESCRIPTION The sedation was turned off prior to the tracing. The background rhythm is abnormal showing a very low amplitude. Delta rhythm amplitude roughly 5 microvolts, frequency 3 Hz. There is a burst suppression pattern as well with bursts of slightly increased amplitude every 20 seconds or so. No lateralizing features seen. INTERPRETATION Abnormal study consistent with severe encephalopathic state. MD DESIREE East/RANDI /4:12 PM /4:18 PM
[2016-08-21] MEDS: SODIUM CHLOR 0.9% 1000 ML INJ 1,000 ML IV SCH (23:56)
[2016-08-22] VITALS (15 sets, daily range): BP systolic 113–136; BP diastolic 53–79; PULSE 64–82; RESP 18; TEMP 96.7–98.4; O2SAT 94–100
[2016-08-22] MEDS: PROPOFOL 1000 MG/100 ML INJ 100 ML IV SCH ×6 (00:05→15:05)
[2016-08-22] MEDS: NOREPINEPHRINE INJ 4 MG in SODIUM CHLOR 0.9% 250 ML INJ 246 ML IV SCH ×3 (00:06→20:56)
[2016-08-22] MEDS: fentaNYL DRIP 250 ML IV SCH ×3 (00:06→18:31)
[2016-08-22] MEDS: INSULIN ASPART SUPPLEMENTAL SCALE SQ SCH ×4 (02:00→20:00)
[2016-08-22] MEDS: CHLORHEXIDINE GLUCONATE 2 % 1 PACK (2 CLOTHS) TOP SCH (03:14)
[2016-08-22] MEDS: MIDAZOLAM 100 MG/NS 100 ML DRIP Premix IV SCH ×2 (03:26→15:05)
--- NOTE | 2016-08-22 04:30 | RADRPT ---
EXAM DATE/TIME: 08/22/2016 03:38 [facility] COMPARISON: CHEST SINGLE AP, August 21, 2016, 9:11. INDICATIONS : Shortness of breath. MEDICAL HISTORY : None. SURGICAL HISTORY : None. ENCOUNTER: Subsequent ACUITY: 1 week PAIN SCORE: Non-responsive. LOCATION: Bilateral chest FINDINGS: The cardiac silhouette is enlarged in transverse diameter. Support lines and tubes are in satisfactor y position. Moderate size bilateral pleural effusions are identified. Perihilar pulmonary edema is pr esent. CONCLUSION: 1. Continued pulmonary edema with moderate bilateral effusions. Effusions are increasing when compare d to the prior study Leonidas Franco MD on August 22, 2016 at 4:28 Board Certified Radiologist. This report was verified electronically.
[2016-08-22 05:03] LABS: BLOOD GAS CARBOXYHEMOGLOBIN 1.9 % (0-4); BLOOD GAS HCO3 22 mmol/L (22-26); BLOOD GAS METHEMOGLOBIN 1.1 % (0-2); BLOOD GAS O2 HGB SATURATION 94 % (90-100); BLOOD GAS OXYGEN CONTENT 13.5 Vol % (12.0-20.0); BLOOD GAS PCO2 33 mmHg (38-42); BLOOD GAS PO2 98 mmHg (61-120); BLOOD GAS TOTAL HGB 10.1 G/DL (12.0-16.0); CRITICAL VALUE NO; OXYGEN DEVICE VENTILATOR; TEMP CORR TO 98.6
[2016-08-22 05:04] LABS: DRAW SITE ART LINE; FIO2 40 %; STAT NO; VENT SETTINGS PRVC/AC
[2016-08-22 05:35] LABS: AUTOMATED NEUTROPHIL # 7.4 TH/MM3 (1.8-7.7); BASOPHIL % 0.5 % (0.0-2.0); EOSINOPHIL # 0.5 TH/MM3 (0-0.4); HEMATOCRIT 25.6 % (39.0-51.0); HEMO FLAGS DIFF FINAL; LYMPH % 13.6 % (9.0-44.0); LYMPHOCYTE # 1.3 TH/MM3 (1.0-4.8); MEAN CELL VOLUME 86.1 FL (80.0-100.0); MEAN CORPUSCULAR HEMOGLOBIN 29.7 PG (27.0-34.0); MEAN CORPUSCULAR HGB CONC 34.4 % (32.0-36.0); NEUT % 75.9 % (16.0-70.0); PLATELET COUNT 223 TH/MM3 (150-450); RED BLOOD COUNT 2.98 MIL/MM3 (4.50-5.90); RED CELL DISTRIBUTION WIDTH 13.9 % (11.6-17.2); WHITE BLOOD COUNT 9.8 TH/MM3 (4.0-11.0)
[2016-08-22 05:40] LABS: ALKALINE PHOSPHATASE 63 U/L (45-117); ALT (GPT) 27 U/L (12-78); ANION GAP 9 MEQ/L (5-15); AST (GOT) 40 U/L (15-37); BICARBONATE 22.6 MEQ/L (21.0-32.0); BLOOD UREA NITROGEN 13 MG/DL (7-18); CHLORIDE 123 MEQ/L (98-107); GLOMERULAR FILTRATION RATE 183 ML/MIN (>89); MAGNESIUM 2.1 MG/DL (1.5-2.5); POTASSIUM 3.2 MEQ/L (3.5-5.1); SODIUM (NA) 155 MEQ/L (136-145); TOTAL BILIRUBIN ADULT 0.9 MG/DL (0.2-1.0)
[2016-08-22] MEDS: POTASSIUM CHLOR 40 MEQ PREMIX 100 ML IV PRN ×3 (05:52→15:06)
--- NOTE | 2016-08-22 06:59 | PD.ORT.PN ---
Subjective Subjective Remarks Patient intubated and sedated. ICPs still elevated. Patient is in bilateral lower extremity skeletal traction Objective Vitals Vital Signs Date Time Temp Pulse Resp B/P Pulse Ox O2 Delivery O2 Flow Rate FiO2 08/22/16 04:00 97.6 67 18 136/76 99 08/22/16 04:00 40 08/22/16 03:50 99 40 08/22/16 00:16 100 40 08/22/16 00:00 40 08/22/16 00:00 96.7 78 18 130/78 97 08/21/16 23:00 80 08/21/16 20:43 98 40 08/21/16 20:00 78 08/21/16 20:00 97.6 76 18 121/73 98 08/21/16 20:00 40 08/21/16 16:29 99 40 08/21/16 16:00 95.4 73 18 119/74 99 08/21/16 16:00 73 08/21/16 12:00 94.8 74 18 118/76 98 08/21/16 12:00 74 08/21/16 10:49 98 40 08/21/16 08:00 40 08/21/16 08:00 95.7 61 18 114/64 99 08/21/16 08:00 61 I/O 08/21/16 08/21/16 08/21/16 08/22/16 08/22/16 08/22/16 07:00 15:00 23:00 07:00 15:00 23:00 Intake Total 982 ml 1467 ml 2057 ml 1355 ml Output Total 675 ml 1485.0 ml 1350.0 ml 650 ml Balance 307 ml -18.0 ml 707.0 ml 705 ml Intake IV Total 982 ml 1146 ml 1673 ml 1125 ml Tube Feeding 121 ml 184 ml 150 ml Other 200 ml 200 ml 80 ml Output Urine Total 625 ml 1125 ml 750 ml 450 ml Gastric Drainage Total 50 ml 180 ml 300 ml 200 ml Tube Feeding Residual Discard 180.0 ml 300.0 ml # Bowel Movements 0 0 0 0 Result Diagram: 08/22/16 0456 08/22/16 0456 Imaging Last 24 hours Impressions Chest X-Ray 08/18/16 0600 Signed Impressions: Service Date/Time: Salvatore, August 18, 2016 05:09 - CONCLUSION: 1. No acute cardiopulmonary disease. Leonidas Franco MD Objective Remarks RLE: + skeletal traction. good cap refill. pin sites clean LLE: + skeletal traction. pin sites clean. Dorsalis pedis palpable bilaterally Assessment & Plan Problem List: (1) Diffuse axonal brain injury (2) SAH (subarachnoid hemorrhage) (3) Nikky-prosthetic femur fracture at tip of prosthesis (4) Acetabulum fracture, left (5) Pubic ramus fracture (6) Lumbar transverse process fracture Assessment and Plan 1) Right Periprosthetic Femur Fx -skeletal traction 2) Left Acetabulum fx with hip dislocation -skeletal traction -maintain traction -will await any further attempt at ORIF until patient more stable -ICPs too unstable at this point., will re-eval for surgery next week Carson Gutierrez MD Aug 22, 2016 06:59
[2016-08-22] MEDS ORDERED: BISACODYL 10 MG SUPP RECTAL ONE (08:30)
[2016-08-22] MEDS: levETIRAcetam INJ 500 MG in SODIUM CHLORIDE 0.9% INJ 100 ML IV SCH ×2 (08:35→20:30)
[2016-08-22] MEDS: PANTOPRAZOLE SODIUM 40 MG VIAL IV SCH (08:35)
[2016-08-22] MEDS: DOCUSATE SODIUM 100 MG/10 ML UDC TUBE SCH ×2 (08:37→20:30)
[2016-08-22] MEDS: CHLORHEXIDINE 0.12% (ORAL KIT) 15 ML CUP MT SCH ×2 (08:37→20:23)
[2016-08-22] MEDS: LACTULOSE SYRUP 20 GM/30 ML CUP PO SCH (08:37)
[2016-08-22] MEDS: SODIUM CHLORIDE 0.9% FLUSH 5 ML FLUSH IV FLUSH SCH ×2 (08:37→20:31)
[2016-08-22] MEDS: BACITRACIN TOP OINT 15 GM TUBE TOP SCH ×2 (08:38→20:31)
[2016-08-22] MEDS: 3% SALINE INJ 500 ML IV SCH (08:38)
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
--- NOTE | 2016-08-22 12:20 | HHI.PR ---
Neuropsych Progress Notes/Response to Tx Contents of Sessions: Level of Consciousness Time with Patient: 15 minutes Premorbid psychological status Premorbid Cognitive, Emotional and Behavioral Status: Stable. The patient has 12 years of education but was on social security disability for a orthopedic injury. 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 It is reported that he is , but has no children. Behavioral Reactions of Patient and Family/Support System: Stable. The patient s family is here from [facility], which is where they wish to bring him back to once medically stable. Emotional/Behavioral Status of Patient and Family/Support System: Stable. Pertinent issues, if appropriate to this patients clinical care, are described in detail above. Maximizing acute care outcome It is recommended that the patient be monitored for emergent behavioral impulsivity as the medical condition evolves. This patients neuropathological challenges may limit their rehabilitation potential going forward, and these challenges will require specialized therapeutic skills to maximize outcome. Additionally, the patients family is experiencing ongoing issues of adjustment given the traumatic nature of the injury, and they may benefit from ongoing psychological assistance. Anticipated Problems Ongoing areas of concern will include behavioral impulsivity, lack of insight and judgment, which is expected to improve with time and treatment. Presently , the patient is not following commands. Treatment Plan This clinician will continue to follow with you throughout the course of this patients rehabilitation treatment, and I will be available to meet with the patients family/support system to facilitate their understanding and the ongoing care of their family member. The goals of neuropsychological intervention shall be both educational and supportive to the family/support system as is deemed clinically appropriate. [facility] Level: I:No response-total assistance Diagnosis: (1) Major neurocognitive disorder as late effect of traumatic brain injury with behavioral disturbance Status: Acute (2) SAH (subarachnoid hemorrhage) Status: Acute Progress Note Narrative Ongoing follow-up of patient within the context of daily trauma rounding. The patient has had complications related to ICP spikes and respiratory issues. Neurobehaviorally, he is nonresponsive, intubated and sedated. I will continue to follow with you. Maurilio Hunter PhD Aug 22, 2016 12:20 pm
[2016-08-22] MEDS: METOCLOPRAMIDE HCL 10 MG/2 ML VIAL IV PUSH SCH ×2 (13:02→20:30)
[2016-08-22 13:30] LABS: POTASSIUM 3.5 MEQ/L (3.5-5.1)
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
[2016-08-22] MEDS: SODIUM CHLOR 0.9% 1000 ML INJ 1,000 ML IV SCH (20:34)
[2016-08-22 22:03] LABS: BLOOD GAS BASE EXCESS -2.4 mmol/L (-2-2); BLOOD GAS CARBOXYHEMOGLOBIN 1.8 % (0-4); BLOOD GAS HCO3 22 mmol/L (22-26); BLOOD GAS METHEMOGLOBIN 1.2 % (0-2); BLOOD GAS O2 HGB SATURATION 94 % (90-100); BLOOD GAS OXYGEN CONTENT 15.1 Vol % (12.0-20.0); BLOOD GAS PCO2 39 mmHg (38-42); BLOOD GAS PO2 96 mmHg (61-120); BLOOD GAS TOTAL HGB 11.4 G/DL (12.0-16.0); CRITICAL VALUE NO; DRAW SITE ART LINE; FIO2 40 %; OXYGEN DEVICE VENTILATOR; STAT NO; TEMP CORR TO 98.6; VENT SETTINGS PRVC/AC
[2016-08-23] VITALS (15 sets, daily range): BP systolic 116–138; BP diastolic 59–65; PULSE 73–116; RESP 18–22; TEMP 98.1–99.7; O2SAT 92–98
[2016-08-23] MEDS: PROPOFOL 1000 MG/100 ML INJ 100 ML IV SCH ×7 (00:20→18:58)
[2016-08-23] MEDS: MIDAZOLAM 100 MG/NS 100 ML DRIP Premix IV SCH ×2 (00:20→12:44)
[2016-08-23] MEDS: 3% SALINE INJ 500 ML IV SCH (00:20)
[2016-08-23] MEDS: fentaNYL DRIP 250 ML IV SCH ×3 (00:20→18:59)
[2016-08-23 01:03] LABS: POTASSIUM 3.4 MEQ/L (3.5-5.1)
[2016-08-23] MEDS: MIDAZOLAM HCL 2 MG/2 ML VIAL IV PUSH PRN ×2 (01:34→16:31)
[2016-08-23] MEDS: INSULIN ASPART SUPPLEMENTAL SCALE SQ SCH ×4 (01:44→20:00)
[2016-08-23] MEDS: NOREPINEPHRINE INJ 4 MG in SODIUM CHLOR 0.9% 250 ML INJ 246 ML IV SCH ×6 (02:04→23:01)
[2016-08-23] MEDS: POTASSIUM CHLOR 20 MEQ PREMIX 100 ML IV PRN ×2 (02:18→04:29)
[2016-08-23] MEDS: CHLORHEXIDINE GLUCONATE 2 % 1 PACK (2 CLOTHS) TOP SCH (02:20)
[2016-08-23] MEDS ORDERED: CISATRACURIUM BESYLATE 20 MG/10 ML VIAL IVP ONE (04:00)
[2016-08-23] MEDS: METOCLOPRAMIDE HCL 10 MG/2 ML VIAL IV PUSH SCH ×3 (05:05→21:55)
[2016-08-23 05:10] LABS: AUTOMATED NEUTROPHIL # 9.9 TH/MM3 (1.8-7.7); BASOPHIL # 0.1 TH/MM3 (0-0.2); BASOPHIL % 0.4 % (0.0-2.0); EOSINOPHIL # 0.6 TH/MM3 (0-0.4); EOSINOPHIL % 4.8 % (0.0-4.0); HEMATOCRIT 27.3 % (39.0-51.0); HEMO FLAGS DIFF FINAL; LYMPH % 10.5 % (9.0-44.0); LYMPHOCYTE # 1.3 TH/MM3 (1.0-4.8); MEAN CELL VOLUME 86.6 FL (80.0-100.0); MEAN CORPUSCULAR HEMOGLOBIN 29.1 PG (27.0-34.0); MEAN CORPUSCULAR HGB CONC 33.6 % (32.0-36.0); MONO % 4.5 % (0.0-8.0); NEUT % 79.8 % (16.0-70.0); PLATELET COUNT 265 TH/MM3 (150-450); RED BLOOD COUNT 3.16 MIL/MM3 (4.50-5.90); RED CELL DISTRIBUTION WIDTH 14.2 % (11.6-17.2); WHITE BLOOD COUNT 12.5 TH/MM3 (4.0-11.0)
[2016-08-23 05:57] LABS: ALKALINE PHOSPHATASE 88 U/L (45-117); ALT (GPT) 26 U/L (12-78); ANION GAP 7 MEQ/L (5-15); AST (GOT) 37 U/L (15-37); BICARBONATE 24.1 MEQ/L (21.0-32.0); BLOOD UREA NITROGEN 9 MG/DL (7-18); CHLORIDE 123 MEQ/L (98-107); GLOMERULAR FILTRATION RATE 155 ML/MIN (>89); POTASSIUM 3.5 MEQ/L (3.5-5.1); SODIUM (NA) 154 MEQ/L (136-145); TOTAL BILIRUBIN ADULT 0.9 MG/DL (0.2-1.0)
--- NOTE | 2016-08-23 06:30 | RADRPT ---
EXAM DATE/TIME: 08/23/2016 04:48 [facility] COMPARISON: CHEST SINGLE AP, August 22, 2016, 3:38. INDICATIONS : Shortness of breath. MEDICAL HISTORY : None. SURGICAL HISTORY : None. ENCOUNTER: Subsequent ACUITY: 1 week PAIN SCORE: Non-responsive. LOCATION: Bilateral chest FINDINGS: The cardiac silhouette is enlarged in transverse diameter. There are findings of congestive heart marco a lure with interstitial and alveolar opacity bilaterally. The findings have worsened when compared wit h the prior examination. Moderate size bilateral pleural effusions are identified. CONCLUSION: 1. Cardiomegaly and findings of congestive heart failure. The findings have worsened when compared wi th the prior examination. Leonidas Franco MD on August 23, 2016 at 6:28 Board Certified Radiologist. This report was verified electronically.
[2016-08-23] MEDS: PANTOPRAZOLE SODIUM 40 MG VIAL IV SCH (07:25)
[2016-08-23] MEDS: levETIRAcetam INJ 500 MG in SODIUM CHLORIDE 0.9% INJ 100 ML IV SCH ×2 (07:26→21:20)
[2016-08-23] MEDS: DOCUSATE SODIUM 100 MG/10 ML UDC TUBE SCH (07:26)
[2016-08-23] MEDS: LACTULOSE SYRUP 20 GM/30 ML CUP PO SCH (07:26)
[2016-08-23] MEDS: SODIUM CHLORIDE 0.9% FLUSH 5 ML FLUSH IV FLUSH SCH ×2 (07:27→21:23)
[2016-08-23] MEDS: BACITRACIN TOP OINT 15 GM TUBE TOP SCH ×2 (07:27→21:23)
[2016-08-23] MEDS: CHLORHEXIDINE 0.12% (ORAL KIT) 15 ML CUP MT SCH ×2 (07:27→21:23)
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
[2016-08-23] MEDS ORDERED: BISACODYL 10 MG SUPP RECTAL ONE (08:30)
[2016-08-23] MEDS: DOCUSATE SODIUM 50 MG/SENNA 8.6 MG TAB PO SCH ×2 (09:25→21:55)
[2016-08-23] MEDS ORDERED: DOBUTamine PREMIX DRIP 250 ML IV SCH (11:00)
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
[2016-08-23 12:52] LABS: POTASSIUM 3.2 MEQ/L (3.5-5.1)
[2016-08-23] MEDS: POTASSIUM CHLOR 40 MEQ PREMIX 100 ML IV PRN (13:36)
[2016-08-23] MEDS: ACETAMINOPHEN 650 MG/20.3 ML UDC TUBE PRN (18:58)
[2016-08-23] MEDS: MIDAZOLAM 100 MG/ML INJ 100 ML IV SCH (18:59)
[2016-08-23 19:06] LABS: HDL CHOLESTEROL 13.2 MG/DL (40.0-60.0)
[2016-08-23] MEDS ORDERED: VECURONIUM BROMIDE 10 MG VIAL IV PUSH ONE (21:45)
[2016-08-23 22:03] LABS: BLOOD GAS BASE EXCESS -0.5 mmol/L (-2-2); BLOOD GAS CARBOXYHEMOGLOBIN 1.9 % (0-4); BLOOD GAS HCO3 24 mmol/L (22-26); BLOOD GAS METHEMOGLOBIN 1.3 % (0-2); BLOOD GAS O2 HGB SATURATION 91 % (90-100); BLOOD GAS OXYGEN CONTENT 13.4 Vol % (12.0-20.0); BLOOD GAS PCO2 39 mmHg (38-42); BLOOD GAS PO2 73 mmHg (61-120); BLOOD GAS TOTAL HGB 10.5 G/DL (12.0-16.0); TEMP CORR TO 98.6
[2016-08-23 22:04] LABS: CRITICAL VALUE NO; FIO2 40 %; OXYGEN DEVICE VENTILATOR; VENT SETTINGS PRVC/AC
[2016-08-23 22:05] LABS: DRAW SITE ART LINE; STAT NO
[2016-08-23] MEDS ORDERED: ALBUMIN HUMAN 5% 25 GM/500 ML BOTTLE IV ONE (23:45)
[2016-08-23] MEDS: SODIUM CHLOR 0.9% 1000 ML INJ 1,000 ML IV SCH (23:51)
[2016-08-24] VITALS (16 sets, daily range): BP systolic 105–147; BP diastolic 58–84; PULSE 69–113; RESP 24–25; TEMP 98.3–100.5; O2SAT 93–99
[2016-08-24] MEDS: INSULIN ASPART SUPPLEMENTAL SCALE SQ SCH ×4 (02:00→20:00)
[2016-08-24] MEDS: ACETAMINOPHEN 650 MG/20.3 ML UDC TUBE PRN (02:05)
[2016-08-24] MEDS: MIDAZOLAM HCL 2 MG/2 ML VIAL IV PUSH PRN ×2 (02:05→03:13)
[2016-08-24] MEDS: DEXTROSE 50% IN WATER 50 ML VIAL(D50) IV PUSH PRN ×3 (02:14→13:53)
[2016-08-24] MEDS ORDERED: ACETAMINOPHEN 1000 MG/100 ML VIAL IV SCH (02:30)
[2016-08-24] MEDS: CHLORHEXIDINE GLUCONATE 2 % 1 PACK (2 CLOTHS) TOP SCH (03:10)
[2016-08-24] MEDS: POTASSIUM CHLOR 20 MEQ PREMIX 100 ML IV PRN ×2 (03:12→05:35)
[2016-08-24] MEDS: PROPOFOL 1000 MG/100 ML INJ 100 ML IV SCH ×2 (03:13→11:18)
[2016-08-24] MEDS: fentaNYL DRIP 250 ML IV SCH ×3 (03:13→21:07)
[2016-08-24] MEDS: MIDAZOLAM 100 MG/ML INJ 100 ML IV SCH ×4 (03:13→21:08)
[2016-08-24 04:43] LABS: AUTOMATED NEUTROPHIL # 9.6 TH/MM3 (1.8-7.7); BASOPHIL # 0.1 TH/MM3 (0-0.2); BASOPHIL % 0.6 % (0.0-2.0); EOSINOPHIL # 0.6 TH/MM3 (0-0.4); EOSINOPHIL % 4.8 % (0.0-4.0); HEMATOCRIT 26.5 % (39.0-51.0); HEMO FLAGS DIFF FINAL; LYMPH % 11.4 % (9.0-44.0); LYMPHOCYTE # 1.4 TH/MM3 (1.0-4.8); MEAN CELL VOLUME 85.4 FL (80.0-100.0); MEAN CORPUSCULAR HEMOGLOBIN 29.2 PG (27.0-34.0); MEAN CORPUSCULAR HGB CONC 34.2 % (32.0-36.0); NEUT % 78.2 % (16.0-70.0); PLATELET COUNT 283 TH/MM3 (150-450); RED CELL DISTRIBUTION WIDTH 14.4 % (11.6-17.2); WHITE BLOOD COUNT 12.3 TH/MM3 (4.0-11.0)
[2016-08-24 05:09] LABS: ALKALINE PHOSPHATASE 91 U/L (45-117); TOTAL BILIRUBIN ADULT 1.4 MG/DL (0.2-1.0)
[2016-08-24] MEDS: METOCLOPRAMIDE HCL 10 MG/2 ML VIAL IV PUSH SCH ×3 (05:30→21:09)
[2016-08-24 05:31] LABS: ALT (GPT) 28 U/L (12-78); ANION GAP 11 MEQ/L (5-15); AST (GOT) 38 U/L (15-37); BICARBONATE 24.2 MEQ/L (21.0-32.0); BLOOD UREA NITROGEN 8 MG/DL (7-18); CHLORIDE 120 MEQ/L (98-107); GLOMERULAR FILTRATION RATE 117 ML/MIN (>89); POTASSIUM 3.1 MEQ/L (3.5-5.1); SODIUM (NA) 155 MEQ/L (136-145)
[2016-08-24 05:41] LABS: BLOOD GAS BASE EXCESS -0.1 mmol/L (-2-2); BLOOD GAS CARBOXYHEMOGLOBIN 1.8 % (0-4); BLOOD GAS HCO3 24 mmol/L (22-26); BLOOD GAS METHEMOGLOBIN 1.2 % (0-2); BLOOD GAS O2 HGB SATURATION 92 % (90-100); BLOOD GAS OXYGEN CONTENT 16.6 Vol % (12.0-20.0); BLOOD GAS PO2 81 mmHg (61-120); BLOOD GAS TOTAL HGB 12.7 G/DL (12.0-16.0); TEMP CORR TO 98.6
[2016-08-24 05:42] LABS: CRITICAL VALUE NO; OXYGEN DEVICE VENTILATOR
[2016-08-24 05:43] LABS: BLOOD GAS PCO2 36 mmHg (38-42); DRAW SITE ART LINE; FIO2 40 %; STAT NO; VENT SETTINGS PRVC/AC
--- NOTE | 2016-08-24 06:01 | RADRPT ---
EXAM DATE/TIME: 08/24/2016 04:44 [facility] COMPARISON: CHEST SINGLE AP, August 23, 2016, 4:48. INDICATIONS : Shortness of breath. MEDICAL HISTORY : None. SURGICAL HISTORY : None. ENCOUNTER: Subsequent ACUITY: 1 week PAIN SCORE: Non-responsive. LOCATION: Bilateral chest FINDINGS: The cardiac silhouette is enlarged in transverse diameter. There are findings of congestive heart marco a lure with interstitial and alveolar opacity bilaterally. Moderate size bilateral pleural effusions ar e identified. Support lines and tubes are in satisfactory position. CONCLUSION: 1. Cardiomegaly and findings of congestive heart failure. There has been no significant change when c ompared to the prior exam. Leonidas Franco MD on August 24, 2016 at 5:59 Board Certified Radiologist. This report was verified electronically.
[2016-08-24] MEDS: NOREPINEPHRINE INJ 4 MG in SODIUM CHLOR 0.9% 250 ML INJ 246 ML IV SCH ×4 (06:52→21:09)
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
[2016-08-24] MEDS: LACTULOSE SYRUP 20 GM/30 ML CUP PO SCH (08:13)
[2016-08-24] MEDS: levETIRAcetam INJ 500 MG in SODIUM CHLORIDE 0.9% INJ 100 ML IV SCH ×2 (08:14→21:08)
[2016-08-24] MEDS: PANTOPRAZOLE SODIUM 40 MG VIAL IV SCH (08:14)
[2016-08-24] MEDS: CHLORHEXIDINE 0.12% (ORAL KIT) 15 ML CUP MT SCH ×2 (08:14→21:07)
[2016-08-24] MEDS: BACITRACIN TOP OINT 15 GM TUBE TOP SCH ×2 (08:15→21:00)
[2016-08-24] MEDS: SODIUM CHLORIDE 0.9% FLUSH 5 ML FLUSH IV FLUSH SCH ×2 (08:15→21:08)
[2016-08-24] MEDS: DOCUSATE SODIUM 50 MG/SENNA 8.6 MG TAB PO SCH ×2 (08:15→21:09)
[2016-08-24] MEDS ORDERED: BISACODYL 10 MG SUPP RECTAL ONE (09:00)
[2016-08-24 12:06] LABS: POTASSIUM 3.6 MEQ/L (3.5-5.1)
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
[2016-08-24] MEDS: POTASSIUM CHLOR 40 MEQ PREMIX 100 ML IV PRN (13:52)
[2016-08-24] MEDS: SODIUM CHLORIDE 23.4% INJ 154 MEQ in DEXTROSE 10% INJ 1,000 ML IV SCH (15:20)
--- NOTE | 2016-08-24 16:30 | PD.PROCEDR ---
Procedure Note Procedure DX: Traumatic Brain Injury OP: Insertion Left Subclavian Central Venous Line (06182) Procedure: With patient head of bed up 30 degrees left chest was prepped and draped. 1% xylocaine infiltrated under clavicle. Micropuncture needle used to cannulate left subclavian vein while patient remained in sitting position. Wire advanced and dilator passed. Three lumen catheter passed over wire to 19 cm. Lumens aspirated and flushed. Dressing applied. CXR ordered, will review. Ilya Chandler MD Aug 24, 2016 16:30
--- NOTE | 2016-08-24 17:16 | PD.PROCEDR ---
Procedure Note Procedure DX: Left Pneumothorax OP: Insertion Left Chest Tube Indications: Patient developed left pneumothorax after insertion of left central venous line. Procedure: Left chest prepped and draped. Two centimeter horizontal incision made over the left 5th rib mid-axillary line. The thorax was entered with blunt dissection over the top of the 4th rib while the ventilator was temporarily disconnected. The 28 Fr tube was directed apically using blunt clamp and the ventilator was reconnected. The tube was sutured in place with one 0-silk suture. Dressing applied. CXR with lung fully expanded. Discussed with DARWIN Osorio after. Ilya Chandler MD Aug 24, 2016 17:16
--- NOTE | 2016-08-24 17:26 | RADRPT ---
EXAM DATE/TIME: 08/24/2016 16:35 [facility] COMPARISON: CHEST SINGLE AP, August 24, 2016, 4:44. INDICATIONS : Left subclavian line placement. MEDICAL HISTORY : None. SURGICAL HISTORY : None. ENCOUNTER: Subsequent ACUITY: 1 week PAIN SCORE: Non-responsive. LOCATION: Left chest FINDINGS: Right ICA and left subclavian line in superior vena cava. There is a moderate-sized left pneumothorax . Subsequent film reveals chest tube placement. Nasogastric tube and feeding tube seen entering stoma ch. Endotracheal tube present. No pneumothorax. Bilateral mostly basilar and perihilar airspace conso lidation. There are pleural effusions present. CONCLUSION: 1. Moderate-sized left pneumothorax. On subsequent film left chest tube is placed. Vishal Teran MD on August 24, 2016 at 17:21 Board Certified Radiologist. This report was verified electronically.
--- NOTE | 2016-08-24 17:28 | RADRPT ---
EXAM DATE/TIME: 08/24/2016 16:59 [facility] COMPARISON: CHEST SINGLE AP, August 24, 2016, 16:35. INDICATIONS : Left sided chest tube placement. MEDICAL HISTORY : None. SURGICAL HISTORY : None. ENCOUNTER: Subsequent ACUITY: 1 week PAIN SCORE: Non-responsive. LOCATION: Left chest FINDINGS: A single view of the chest demonstrates a left chest tube present without pneumothorax. Feeding tube and nasogastric tube coiled in stomach. Endotracheal tube in satisfactory position. Left and right ce ntral lines in superior vena cava. Bilateral mostly perihilar and basilar consolidation and small eff usions. CONCLUSION: 1. Left chest tube placed without significant pneumothorax. Support apparatus in satisfactory positio n. Vishal Teran MD on August 24, 2016 at 17:24 Board Certified Radiologist. This report was verified electronically.
[2016-08-24 19:13] LABS: BLOOD GAS BASE EXCESS -1.3 mmol/L (-2-2); BLOOD GAS CARBOXYHEMOGLOBIN 1.6 % (0-4); BLOOD GAS HCO3 22 mmol/L (22-26); BLOOD GAS METHEMOGLOBIN 1.1 % (0-2); BLOOD GAS O2 HGB SATURATION 93 % (90-100); BLOOD GAS OXYGEN CONTENT 11.6 Vol % (12.0-20.0); BLOOD GAS PCO2 33 mmHg (38-42); BLOOD GAS PO2 80 mmHg (61-120); BLOOD GAS TOTAL HGB 8.8 G/DL (12.0-16.0); CRITICAL VALUE NO; OXYGEN DEVICE VENTILATOR; TEMP CORR TO 98.6
[2016-08-24 19:14] LABS: DRAW SITE ART LINE; LITER FLOW 40 L/M; STAT YES; VENT SETTINGS 25/550/+5/40%/IT0.80
[2016-08-24] MEDS: MAGNESIUM HYDROXIDE SUSP 30 ML CUP PO SCH (21:08)
[2016-08-24] MEDS: CLINIMIX E 5/25 1000 mL- </= 42 mls/hr IV-CENTRAL SCH ×3 (21:08)
[2016-08-24] MEDS: SODIUM CHLOR 0.9% 1000 ML INJ 1,000 ML IV SCH (23:49)
[2016-08-25] VITALS (16 sets, daily range): BP systolic 104–134; BP diastolic 62–76; PULSE 71–80; RESP 25; TEMP 98–100.6; O2SAT 96–99
[2016-08-25] MEDS: INSULIN ASPART SUPPLEMENTAL SCALE SQ SCH ×4 (02:00→20:00)
[2016-08-25] MEDS: CHLORHEXIDINE GLUCONATE 2 % 1 PACK (2 CLOTHS) TOP SCH (04:00)
[2016-08-25] MEDS: NOREPINEPHRINE INJ 4 MG in SODIUM CHLOR 0.9% 250 ML INJ 246 ML IV SCH ×8 (05:02→22:22)
[2016-08-25] MEDS: METOCLOPRAMIDE HCL 10 MG/2 ML VIAL IV PUSH SCH ×3 (05:02→21:13)
[2016-08-25 05:07] LABS: AUTOMATED NEUTROPHIL # 9.1 TH/MM3 (1.8-7.7); BASOPHIL % 0.2 % (0.0-2.0); EOSINOPHIL # 0.4 TH/MM3 (0-0.4); EOSINOPHIL % 3.7 % (0.0-4.0); HEMATOCRIT 24.6 % (39.0-51.0); HEMO FLAGS DIFF FINAL; LYMPH % 14.3 % (9.0-44.0); LYMPHOCYTE # 1.7 TH/MM3 (1.0-4.8); MEAN CELL VOLUME 84.5 FL (80.0-100.0); MEAN CORPUSCULAR HEMOGLOBIN 28.1 PG (27.0-34.0); MEAN CORPUSCULAR HGB CONC 33.2 % (32.0-36.0); MONO % 5.8 % (0.0-8.0); PLATELET COUNT 293 TH/MM3 (150-450); RED BLOOD COUNT 2.91 MIL/MM3 (4.50-5.90); RED CELL DISTRIBUTION WIDTH 14.4 % (11.6-17.2)
[2016-08-25 05:23] LABS: ALKALINE PHOSPHATASE 80 U/L (45-117); ALT (GPT) 22 U/L (12-78); ANION GAP 6 MEQ/L (5-15); AST (GOT) 38 U/L (15-37); BICARBONATE 26.8 MEQ/L (21.0-32.0); BLOOD UREA NITROGEN 13 MG/DL (7-18); CHLORIDE 116 MEQ/L (98-107); GLOMERULAR FILTRATION RATE 127 ML/MIN (>89); MAGNESIUM 2.4 MG/DL (1.5-2.5); POTASSIUM 3.6 MEQ/L (3.5-5.1); SODIUM (NA) 149 MEQ/L (136-145); TOTAL BILIRUBIN ADULT 0.9 MG/DL (0.2-1.0)
--- NOTE | 2016-08-25 05:23 | RADRPT ---
EXAM DATE/TIME: 08/25/2016 04:51 [facility] COMPARISON: CHEST SINGLE AP, August 24, 2016, 16:59. INDICATIONS : Shortness of breath. MEDICAL HISTORY : None. SURGICAL HISTORY : None. ENCOUNTER: Subsequent ACUITY: 1 week PAIN SCORE: Non-responsive. LOCATION: Bilateral chest FINDINGS: The ET tube and NG tube are well placed. There is a feeding tube with its tip in the upper aspect of the stomach. The heart size is normal. There is increased density at the mid and lower lungs being wo rse on the left. CONCLUSION: Middle and lower lung areas of atelectasis or consolidation. Arnaldo Christianson MD on August 25, 2016 at 5:21 Board Certified Radiologist. This report was verified electronically.
[2016-08-25 05:46] LABS: BLOOD GAS BASE EXCESS 0.9 mmol/L (-2-2); BLOOD GAS CARBOXYHEMOGLOBIN 1.8 % (0-4); BLOOD GAS HCO3 24 mmol/L (22-26); BLOOD GAS METHEMOGLOBIN 1.1 % (0-2); BLOOD GAS O2 HGB SATURATION 92 % (90-100); BLOOD GAS OXYGEN CONTENT 10.9 Vol % (12.0-20.0); BLOOD GAS PCO2 35 mmHg (38-42); BLOOD GAS PO2 75 mmHg (61-120); BLOOD GAS TOTAL HGB 8.3 G/DL (12.0-16.0); CRITICAL VALUE NO; TEMP CORR TO 98.6
[2016-08-25 05:47] LABS: DRAW SITE ALINE; FIO2 40 %; STAT NO
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
[2016-08-25] MEDS: PANTOPRAZOLE SODIUM 40 MG VIAL IV SCH (07:45)
[2016-08-25] MEDS: DOCUSATE SODIUM 50 MG/SENNA 8.6 MG TAB PO SCH ×2 (07:45→21:12)
[2016-08-25] MEDS: levETIRAcetam INJ 500 MG in SODIUM CHLORIDE 0.9% INJ 100 ML IV SCH ×2 (07:45→21:12)
[2016-08-25] MEDS: LACTULOSE SYRUP 20 GM/30 ML CUP PO SCH (07:45)
[2016-08-25] MEDS: CHLORHEXIDINE 0.12% (ORAL KIT) 15 ML CUP MT SCH ×2 (07:46→21:13)
[2016-08-25] MEDS: BACITRACIN TOP OINT 15 GM TUBE TOP SCH ×2 (07:46→21:44)
[2016-08-25] MEDS: SODIUM CHLORIDE 0.9% FLUSH 5 ML FLUSH IV FLUSH SCH ×2 (07:46→21:13)
[2016-08-25] MEDS: MIDAZOLAM 100 MG/ML INJ 100 ML IV SCH ×2 (07:48→15:00)
[2016-08-25] MEDS: fentaNYL DRIP 250 ML IV SCH (08:28)
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
[2016-08-25] MEDS: POTASSIUM CHLOR 40 MEQ PREMIX 100 ML IV PRN (09:37)
[2016-08-25] MEDS: ENOXAPARIN SODIUM 30 MG/0.3 ML SYRINGE SQ SCH (10:16)
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
[2016-08-25] MEDS: SODIUM CHLORIDE 23.4% INJ 154 MEQ in DEXTROSE 10% INJ 1,000 ML IV SCH (15:00)
[2016-08-25 18:05] LABS: BLOOD GAS BASE EXCESS -0.4 mmol/L (-2-2); BLOOD GAS CARBOXYHEMOGLOBIN 1.6 % (0-4); BLOOD GAS HCO3 23 mmol/L (22-26); BLOOD GAS METHEMOGLOBIN 0.8 % (0-2); BLOOD GAS O2 HGB SATURATION 94 % (90-100); BLOOD GAS OXYGEN CONTENT 12.7 Vol % (12.0-20.0); BLOOD GAS PCO2 34 mmHg (38-42); BLOOD GAS PO2 85 mmHg (61-120); BLOOD GAS TOTAL HGB 9.5 G/DL (12.0-16.0); CRITICAL VALUE NO; OXYGEN DEVICE VENTILATOR; TEMP CORR TO 98.6
[2016-08-25 18:06] LABS: FIO2 40 %; VENT SETTINGS PRVC/AC
[2016-08-25 18:07] LABS: DRAW SITE ART LINE; STAT NO
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
[2016-08-25] MEDS: MAGNESIUM HYDROXIDE SUSP 30 ML CUP PO SCH (21:13)
[2016-08-25] MEDS: CLINIMIX E 5/25 1000 mL- </= 42 mls/hr IV-CENTRAL SCH ×3 (21:14)
[2016-08-25] MEDS: SODIUM CHLOR 0.9% 1000 ML INJ 1,000 ML IV SCH (22:23)
[2016-08-26] VITALS (12 sets, daily range): BP systolic 103–135; BP diastolic 57–78; PULSE 80–96; RESP 25; TEMP 98.5–99.6; O2SAT 98–100
[2016-08-26] MEDS: NOREPINEPHRINE INJ 4 MG in SODIUM CHLOR 0.9% 250 ML INJ 246 ML IV SCH (01:13)
[2016-08-26] MEDS: MIDAZOLAM 100 MG/ML INJ 100 ML IV SCH ×2 (01:14→16:25)
[2016-08-26] MEDS: INSULIN ASPART SUPPLEMENTAL SCALE SQ SCH ×4 (01:14→20:00)
[2016-08-26] MEDS: fentaNYL DRIP 250 ML IV SCH ×2 (01:14→16:25)
[2016-08-26] MEDS: CHLORHEXIDINE GLUCONATE 2 % 1 PACK (2 CLOTHS) TOP SCH (04:00)
[2016-08-26] MEDS: METOCLOPRAMIDE HCL 10 MG/2 ML VIAL IV PUSH SCH ×3 (04:05→20:41)
[2016-08-26 05:00] LABS: HEMATOCRIT 25.7 % (39.0-51.0); MEAN CELL VOLUME 84.4 FL (80.0-100.0); MEAN CORPUSCULAR HEMOGLOBIN 28.3 PG (27.0-34.0); MEAN CORPUSCULAR HGB CONC 33.5 % (32.0-36.0); PLATELET COUNT 276 TH/MM3 (150-450); RED BLOOD COUNT 3.04 MIL/MM3 (4.50-5.90); RED CELL DISTRIBUTION WIDTH 14.1 % (11.6-17.2); REVIEW FLAG FINAL
[2016-08-26 05:38] LABS: BICARBONATE 28.2 MEQ/L (21.0-32.0); POTASSIUM 3.7 MEQ/L (3.5-5.1)
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
[2016-08-26 06:42] LABS: BLOOD GAS BASE EXCESS -1.4 mmol/L (-2-2); BLOOD GAS CARBOXYHEMOGLOBIN 1.6 % (0-4); BLOOD GAS HCO3 22 mmol/L (22-26); BLOOD GAS METHEMOGLOBIN 0.9 % (0-2); BLOOD GAS O2 HGB SATURATION 93 % (90-100); BLOOD GAS OXYGEN CONTENT 14.5 Vol % (12.0-20.0); BLOOD GAS PCO2 32 mmHg (38-42); BLOOD GAS PO2 83 mmHg (61-120); CRITICAL VALUE NO; OXYGEN DEVICE VENTILATOR; TEMP CORR TO 98.6
[2016-08-26 06:43] LABS: DRAW SITE ART LINE; FIO2 40 %; STAT NO; VENT SETTINGS PRVC
[2016-08-26] MEDS: BACITRACIN TOP OINT 15 GM TUBE TOP SCH ×2 (09:00→20:44)
[2016-08-26] MEDS: levETIRAcetam INJ 500 MG in SODIUM CHLORIDE 0.9% INJ 100 ML IV SCH ×2 (09:38→20:41)
[2016-08-26] MEDS: LACTULOSE SYRUP 20 GM/30 ML CUP PO SCH (09:38)
[2016-08-26] MEDS: DOCUSATE SODIUM 50 MG/SENNA 8.6 MG TAB PO SCH ×2 (09:39→20:41)
[2016-08-26] MEDS: PANTOPRAZOLE SODIUM 40 MG VIAL IV SCH (09:39)
[2016-08-26] MEDS: MUPIROCIN 2% OINT 1 APPLIC/GM SYR EACH NARE SCH ×2 (09:39→20:42)
[2016-08-26] MEDS: ENOXAPARIN SODIUM 30 MG/0.3 ML SYRINGE SQ SCH (09:39)
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
--- NOTE | 2016-08-26 12:33 | HHI.PR ---
Neuropsych Progress Notes/Response to Tx Time with Patient: 15 minutes Premorbid psychological status Premorbid Cognitive, Emotional and Behavioral Status: Stable. The patient has 12 years of education but was on social security disability for a orthopedic injury. 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 It is reported that he is , but has no children. Behavioral Reactions of Patient and Family/Support System: Stable. The patient s family is here from [facility], which is where they wish to bring him back to once medically stable. Emotional/Behavioral Status of Patient and Family/Support System: Stable. Pertinent issues, if appropriate to this patients clinical care, are described in detail above. Maximizing acute care outcome It is recommended that the patient be monitored for emergent behavioral impulsivity as the medical condition evolves. This patients neuropathological challenges may limit their rehabilitation potential going forward, and these challenges will require specialized therapeutic skills to maximize outcome. Additionally, the patients family is experiencing ongoing issues of adjustment given the traumatic nature of the injury, and they may benefit from ongoing psychological assistance. Anticipated Problems Ongoing areas of concern will include behavioral impulsivity, lack of insight and judgment, which is expected to improve with time and treatment. Presently , the patient is not following commands. Treatment Plan This clinician will continue to follow with you throughout the course of this patients rehabilitation treatment, and I will be available to meet with the patients family/support system to facilitate their understanding and the ongoing care of their family member. The goals of neuropsychological intervention shall be both educational and supportive to the family/support system as is deemed clinically appropriate. [facility] Level: I:No response-total assistance Diagnosis: (1) Major neurocognitive disorder as late effect of traumatic brain injury with behavioral disturbance Status: Acute (2) SAH (subarachnoid hemorrhage) Status: Acute Progress Note Narrative Ongoing follow-up of patient who was seen within the context of daily trauma rounding. From a neurobehavioral perspective, there has been no change. There was no family present. I will continue to follow with you. Maurilio Hunter PhD Aug 26, 2016 12:33 pm
[2016-08-26] MEDS: SODIUM CHLORIDE 23.4% INJ 154 MEQ in DEXTROSE 10% INJ 1,000 ML IV SCH (15:00)
[2016-08-26 18:39] LABS: BLOOD GAS BASE EXCESS 0.9 mmol/L (-2-2); BLOOD GAS CARBOXYHEMOGLOBIN 1.9 % (0-4); BLOOD GAS HCO3 23 mmol/L (22-26); BLOOD GAS METHEMOGLOBIN 0.7 % (0-2); BLOOD GAS O2 HGB SATURATION 90 % (90-100); BLOOD GAS OXYGEN CONTENT 9.9 Vol % (12.0-20.0); BLOOD GAS PCO2 27 mmHg (38-42); BLOOD GAS PO2 60 mmHg (61-120); BLOOD GAS TOTAL HGB 7.7 G/DL (12.0-16.0); TEMP CORR TO 98.6
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
[2016-08-26 18:41] LABS: OXYGEN DEVICE VENT
[2016-08-26 18:42] LABS: DRAW SITE RT RADIAL; FIO2 40 %; NUMBER OF ARTERIAL PUNCTURES 1; STAT NO; ULNAR PULSE PRESENT; VENT SETTINGS PRVC/18/.9/5PEEP
[2016-08-26] MEDS: FAT EMULSION 20% INJ 250 ML (Daily over 8 hours) IV-CENTRAL SCH (20:42)
[2016-08-26] MEDS: SODIUM CHLORIDE 0.9% FLUSH 5 ML FLUSH IV FLUSH SCH ×2 (20:42→20:44)
[2016-08-26] MEDS: MAGNESIUM HYDROXIDE SUSP 30 ML CUP PO SCH (20:42)
[2016-08-26] MEDS: CLINIMIX E 5/25 1000 mL- </= 42 mls/hr IV-CENTRAL SCH ×3 (20:43)
[2016-08-26] MEDS: CHLORHEXIDINE 0.12% (ORAL KIT) 15 ML CUP MT SCH (20:43)
[2016-08-27] VITALS (17 sets, daily range): BP systolic 109–146; BP diastolic 65–85; PULSE 83–92; RESP 20–25; TEMP 97.8–98.7; O2SAT 97–100
[2016-08-27] MEDS: fentaNYL DRIP 250 ML IV SCH ×2 (00:25→21:07)
[2016-08-27] MEDS: MIDAZOLAM 100 MG/ML INJ 100 ML IV SCH ×2 (00:26→11:11)
[2016-08-27] MEDS: SODIUM CHLOR 0.9% 1000 ML INJ 1,000 ML IV SCH ×2 (01:14→23:49)
[2016-08-27] MEDS: INSULIN ASPART SUPPLEMENTAL SCALE SQ SCH ×4 (02:00→20:00)
[2016-08-27 03:44] LABS: HEMATOCRIT 22.6 % (39.0-51.0); MEAN CELL VOLUME 82.9 FL (80.0-100.0); MEAN CORPUSCULAR HEMOGLOBIN 29.1 PG (27.0-34.0); MEAN CORPUSCULAR HGB CONC 35.1 % (32.0-36.0); PLATELET COUNT 225 TH/MM3 (150-450); RED BLOOD COUNT 2.73 MIL/MM3 (4.50-5.90); RED CELL DISTRIBUTION WIDTH 14.3 % (11.6-17.2); REVIEW FLAG FINAL; WHITE BLOOD COUNT 7.2 TH/MM3 (4.0-11.0)
[2016-08-27] MEDS: CHLORHEXIDINE GLUCONATE 2 % 1 PACK (2 CLOTHS) TOP SCH (04:00)
[2016-08-27 04:05] LABS: BICARBONATE 26.6 MEQ/L (21.0-32.0); POTASSIUM 3.3 MEQ/L (3.5-5.1)
[2016-08-27] MEDS: METOCLOPRAMIDE HCL 10 MG/2 ML VIAL IV PUSH SCH ×3 (04:28→21:08)
[2016-08-27 05:16] LABS: BLOOD GAS BASE EXCESS 0.9 mmol/L (-2-2); BLOOD GAS CARBOXYHEMOGLOBIN 1.6 % (0-4); BLOOD GAS HCO3 24 mmol/L (22-26); BLOOD GAS O2 HGB SATURATION 93 % (90-100); BLOOD GAS OXYGEN CONTENT 10.6 Vol % (12.0-20.0); BLOOD GAS PCO2 33 mmHg (38-42); BLOOD GAS PO2 79 mmHg (61-120); TEMP CORR TO 98.6
[2016-08-27 05:17] LABS: CRITICAL VALUE NO; DRAW SITE RT BRACHIAL; FIO2 40 %; NUMBER OF ARTERIAL PUNCTURES 1; OXYGEN DEVICE VENTILATOR
[2016-08-27 05:18] LABS: STAT YES
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
--- NOTE | 2016-08-27 06:50 | EKG ---
Date Performed: 08/25/2016 Time Performed: 03:51:22 PTAGE: 35 years EKG: Sinus rhythm , rate 80 rSr(V1)- probable normal variant Extensive ST-T changes may be due to myocardial ischemia L ow QRS voltage in limb leads Inferior ischemia which is new compared to previous Prolongation of QT i nterval PREVIOUS TRACING : 08/19/2016 10.59 DOCTOR: Vicente Quinones Interpretating Date/Time 08/27/2016 06:48:52
[2016-08-27] MEDS: CHLORHEXIDINE 0.12% (ORAL KIT) 15 ML CUP MT SCH ×2 (08:00→21:11)
[2016-08-27] MEDS: LACTULOSE SYRUP 20 GM/30 ML CUP PO SCH (08:34)
[2016-08-27] MEDS: levETIRAcetam INJ 500 MG in SODIUM CHLORIDE 0.9% INJ 100 ML IV SCH ×2 (08:34→21:07)
[2016-08-27] MEDS: ENOXAPARIN SODIUM 30 MG/0.3 ML SYRINGE SQ SCH (08:34)
[2016-08-27] MEDS: DOCUSATE SODIUM 50 MG/SENNA 8.6 MG TAB PO SCH ×2 (08:35→21:09)
[2016-08-27] MEDS: PANTOPRAZOLE SODIUM 40 MG VIAL IV SCH (08:35)
[2016-08-27] MEDS: POTASSIUM CHLOR 20 MEQ PREMIX 100 ML IV PRN (08:37)
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
[2016-08-27] MEDS: SODIUM CHLORIDE 23.4% INJ 154 MEQ in DEXTROSE 10% INJ 1,000 ML IV SCH (15:00)
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
[2016-08-27] MEDS: SODIUM CHLORIDE 0.9% FLUSH 5 ML FLUSH IV FLUSH SCH (21:00)
[2016-08-27] MEDS: FAT EMULSION 20% INJ 250 ML (Daily over 8 hours) IV-CENTRAL SCH (21:05)
[2016-08-27] MEDS: BACITRACIN TOP OINT 15 GM TUBE TOP SCH (21:06)
[2016-08-27] MEDS: MAGNESIUM HYDROXIDE SUSP 30 ML CUP PO SCH (21:06)
[2016-08-27] MEDS: MUPIROCIN 2% OINT 1 APPLIC/GM SYR EACH NARE SCH (21:08)
[2016-08-27] MEDS: CLINIMIX E 5/25 1000 mL- </= 42 mls/hr IV-CENTRAL SCH ×3 (21:13)
[2016-08-28] VITALS (18 sets, daily range): BP systolic 149–166; BP diastolic 90–98; PULSE 84–97; RESP 21–30; TEMP 98.2–99.7; O2SAT 97–100
[2016-08-28] MEDS: INSULIN ASPART SUPPLEMENTAL SCALE SQ SCH ×4 (02:00→20:00)
[2016-08-28] MEDS: CHLORHEXIDINE GLUCONATE 2 % 1 PACK (2 CLOTHS) TOP SCH (03:16)
[2016-08-28 04:19] LABS: HEMATOCRIT 25.6 % (39.0-51.0); MEAN CELL VOLUME 81.7 FL (80.0-100.0); MEAN CORPUSCULAR HGB CONC 35.4 % (32.0-36.0); PLATELET COUNT 344 TH/MM3 (150-450); RED BLOOD COUNT 3.14 MIL/MM3 (4.50-5.90); RED CELL DISTRIBUTION WIDTH 14.3 % (11.6-17.2); REVIEW FLAG FINAL; WHITE BLOOD COUNT 11.2 TH/MM3 (4.0-11.0)
[2016-08-28 04:44] LABS: POTASSIUM 3.9 MEQ/L (3.5-5.1)
[2016-08-28 05:49] LABS: BLOOD GAS BASE EXCESS 1.1 mmol/L (-2-2); BLOOD GAS CARBOXYHEMOGLOBIN 1.5 % (0-4); BLOOD GAS HCO3 24 mmol/L (22-26); BLOOD GAS METHEMOGLOBIN 0.9 % (0-2); BLOOD GAS O2 HGB SATURATION 94 % (90-100); BLOOD GAS PCO2 32 mmHg (38-42); BLOOD GAS PO2 78 mmHg (61-120); BLOOD GAS TOTAL HGB 9.1 G/DL (12.0-16.0); CRITICAL VALUE NO; DRAW SITE RT RADIAL; FIO2 40 %; OXYGEN DEVICE VENTILATOR; TEMP CORR TO 98.6; VENT SETTINGS PRVC/AC
[2016-08-28 05:50] LABS: NUMBER OF ARTERIAL PUNCTURES 1; STAT NO; ULNAR PULSE PRESENT
[2016-08-28] MEDS: METOCLOPRAMIDE HCL 10 MG/2 ML VIAL IV PUSH SCH ×3 (06:10→23:49)
--- NOTE | 2016-08-28 06:24 | RADRPT ---
EXAM DATE/TIME: 08/28/2016 05:03 [facility] COMPARISON: CHEST SINGLE AP, August 25, 2016, 4:51. INDICATIONS : Short of breath MEDICAL HISTORY : None. SURGICAL HISTORY : None. ENCOUNTER: Subsequent ACUITY: 1 week PAIN SCORE: Non-responsive. LOCATION: Bilateral chest FINDINGS: ET tube, NG tube and left subclavian line are well placed. The heart size is normal. There is there i s increased density in the left hilar region and at the bases bilaterally. CONCLUSION: Areas of consolidation in the lungs bilaterally being worse on the left. Arnaldo Christianson MD on August 28, 2016 at 6:23 Board Certified Radiologist. This report was verified electronically.
[2016-08-28] MEDS: CHLORHEXIDINE 0.12% (ORAL KIT) 15 ML CUP MT SCH ×2 (08:00→20:16)
[2016-08-28] MEDS: DOCUSATE SODIUM 50 MG/SENNA 8.6 MG TAB PO SCH ×2 (09:00→20:17)
[2016-08-28] MEDS: BACITRACIN TOP OINT 15 GM TUBE TOP SCH ×2 (09:00→20:18)
[2016-08-28] MEDS: SODIUM CHLORIDE 0.9% FLUSH 5 ML FLUSH IV FLUSH SCH ×2 (09:00→20:17)
[2016-08-28] MEDS: levETIRAcetam INJ 500 MG in SODIUM CHLORIDE 0.9% INJ 100 ML IV SCH ×2 (09:56→20:15)
[2016-08-28] MEDS: MUPIROCIN 2% OINT 1 APPLIC/GM SYR EACH NARE SCH ×2 (09:56→20:16)
[2016-08-28] MEDS: LACTULOSE SYRUP 20 GM/30 ML CUP PO SCH (09:56)
[2016-08-28] MEDS: MIDAZOLAM 100 MG/ML INJ 100 ML IV SCH (09:57)
[2016-08-28] MEDS: fentaNYL DRIP 250 ML IV SCH ×2 (09:58→20:15)
[2016-08-28] MEDS: PANTOPRAZOLE SODIUM 40 MG VIAL IV SCH (09:58)
[2016-08-28] MEDS ORDERED: PROPOFOL 500 MG/50 ML INJ 50 ML ONE (11:11)
[2016-08-28] MEDS ORDERED: ROCURONIUM INJ 50 MG/5 ML VIAL ONE (11:30)
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
[2016-08-28] MEDS ORDERED: PROPOFOL 500 MG/50 ML INJ 50 ML IV ONE (14:00)
[2016-08-28] MEDS ORDERED: HYOSCYAMINE 0.5 MG/ML AMP IVP SCH (14:00)
[2016-08-28] MEDS ORDERED: ROCURONIUM INJ 50 MG/5 ML VIAL IV ONE (14:00)
[2016-08-28] MEDS ORDERED: PROPOFOL 200 MG/20 ML AMP IV ONE (14:19)
[2016-08-28] MEDS ORDERED: ceFAZolin INJ 1,000 MG VIAL IV ONE (14:26)
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
[2016-08-28] MEDS: SODIUM CHLORIDE 23.4% INJ 154 MEQ in DEXTROSE 10% INJ 1,000 ML IV SCH (15:00)
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
[2016-08-28] MEDS: HYOSCYAMINE 0.5 MG/ML AMP IVP SCH ×3 (15:47→23:50)
--- NOTE | 2016-08-28 16:02 | MR ---
cc: CHIKA LAKE M.D., JOEL L. M.D. DATE: 08/28/2016 DATE OF : [address] Shepherd. PROCEDURE Upper gastrointestinal endoscopy with percutaneous endoscopic gastrostomy tube placement. ENDOSCOPIST: Dr. Joe MD. MEDICATIONS 1. Propofol administered by anesthesia. INSTRUMENT: Pentax upper scope. PROCEDURE: The scope was placed in the mouth advanced under video guidance down to the second portion of the duodenum scope drawn back the stomach. Retroflexion was performed. The area was identified in the abdomen on the left upper quadrant with illumination and dentition. Sterilized with Betadine, injected with Lidocaine and then 20-Irish Microvasive percutaneous endoscopic gastrostomy tube was placed with a pull technique without immediate complication. Verification of the percutaneous endoscopic gastrostomy tube was done without immediate complication. The patient was given 1 gram of Ancef. FINDINGS 1. Normal exam. 2. The percutaneous endoscopic gastrostomy tube was placed. RECOMMENDATIONS: 1. NPO for six hours. 2. May start feeding and using the percutaneous endoscopic gastrostomy tube for medications. MD LAURIE Youngblood/sylvia /2:31 PM /3:37 PM
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
--- NOTE | 2016-08-28 18:28 | PD.PROCEDR ---
Procedure Note Procedure Procedure: Diagnostic and therapeutic Fiberoptic Bronchoscopy Diagnosis: Traumatic brain injury Indications: Acute on chronic respiratory failure requiring percutaneous dilation tracheostomy Consent: Written consent was obtained Anesthesia: Versed 10 mg IV, rocuronium 100 mg IV Description of the Procedure: The patient was sedated and mechanically ventilated. The patient was placed on 100% FIO2 and a volume control mode of ventilation. The fiberoptic bronchoscopy was inserted via the endotracheal tube. The trachea, right and left mainstem bronchi, and sub-segmental bronchi were evaluated. The endobronchial anatomy was normal. Findings: Moderate amount of white secretions in the right lower lobe, left lower lobe area these were aggressively suctioned prior to the tracheostomy procedure. Under direct bronchoscopic visualization, the needle, guidewire, dilator, and percutaneous tracheostomy were performed. Please see separate procedure note for those details. Once the tracheostomy was in place and before any positive pressure ventilation, the tracheostomy was confirmed in the lumen of the trachea via bronchoscopy. There was noted to be a very large blood clot obstructing both right and left mainstem bronchi which was aggressively suctioned out. After this the remainder of the endobronchial anatomy was clean. BAL samples: BAL samples were not sent The patient tolerated the procedure well with no hemodynamic instability or hypoxia. There were no immediate complications noted. At the conclusion of the procedure, the patient was placed back on their pre-procedure ventilatory settings. There was minimal EBL. A chest x-ray has been ordered. I personally performed the procedure. Shade Byers MD Aug 28, 2016 18:28
--- NOTE | 2016-08-28 19:14 | MP ---
cc: IRMA SCOTT MD DATE OF SURGERY: 08/28/2016. PREOPERATIVE DIAGNOSIS: 1. Respiratory failure brain. 2. Traumatic brain injury. POSTOPERATIVE DIAGNOSIS: 1. Respiratory failure brain. 2. Traumatic brain injury. OPERATIVE PROCEDURE PERFORMED: Blue rhino tracheostomy SURGEON: Irma Scott M.D. BRONCHOSCOPIST: Dr. Ian Torres. ANESTHESIA: Propofol IV sedation and local 1% Xylocaine. ESTIMATED BLOOD LOSS: 5 mL. DESCRIPTION OF THE PROCEDURE IN DETAIL: The patient was prepped and draped in the usual fashion. The area was infiltrated with 1% Xylocaine. Incision was made in the anterior neck and deepened down to the level of the strap muscles These were dissected laterally and then the trachea was exposed. The bronchoscope was now inserted and then the needle was inserted into the trachea between the second and third rings, and through this, the guidewire was placed downward. Over the guidewire, the first small dilator was placed and then the large blue rhino dilator, and then finally, a #8 Shiley tracheostomy was placed in position. The cuff was insufflated. End tidal CO2 was checked. The tracheal cannula was sutured with 2-0 Prolene to the skin and secured with a strap around the neck. Bronchoscopy was now performed. A large amount of mucus material was obtained. The patient tolerated the procedure well. Irma BAIRES/SOHAIL /5:29 PM /7:09 PM
[2016-08-28] MEDS: FAT EMULSION 20% INJ 250 ML (Daily over 8 hours) IV-CENTRAL SCH (20:13)
[2016-08-28] MEDS: MAGNESIUM HYDROXIDE SUSP 30 ML CUP PO SCH (20:17)
[2016-08-28] MEDS: CLINIMIX E 5/25 1000 mL- </= 42 mls/hr IV-CENTRAL SCH ×3 (20:48)
[2016-08-28] MEDS: cefTRIAXone INJ 2,000 MG in SODIUM CHLORIDE 0.9% INJ 100 ML IV SCH (23:49)
[2016-08-28] MEDS: SODIUM CHLOR 0.9% 1000 ML INJ 1,000 ML IV SCH (23:49)
[2016-08-29] VITALS (19 sets, daily range): BP systolic 130–164; BP diastolic 80–100; PULSE 87–122; RESP 20–30; TEMP 97.8–100; O2SAT 87–100
[2016-08-29] MEDS: INSULIN ASPART SUPPLEMENTAL SCALE SQ SCH ×4 (02:00→20:00)
[2016-08-29] MEDS: CHLORHEXIDINE GLUCONATE 2 % 1 PACK (2 CLOTHS) TOP SCH (04:00)
--- NOTE | 2016-08-29 04:15 | RADRPT ---
EXAM DATE/TIME: 08/29/2016 03:30 [place] COMPARISON: CT THORAX W CONTRAST, August 16, 2016, 20:37. CHEST SINGLE AP, August 28, 2016, 5:03. INDICATIONS : Shortness of breath. MEDICAL HISTORY : None. SURGICAL HISTORY : None. ENCOUNTER: Subsequent ACUITY: 2 weeks PAIN SCORE: Non-responsive. LOCATION: chest FINDINGS: Bilateral effusions and consolidation of the lower lobes again seen are tracheostomy tube, left subcl zurdo line and enteric tube again seen. CONCLUSION: Bilateral effusions and consolidation. Michael Valentino MD on August 29, 2016 at 4:12 Board Certified Radiologist. This report was verified electronically.
[2016-08-29 04:20] LABS: AUTOMATED NEUTROPHIL # 9.3 TH/MM3 (1.8-7.7); BASOPHIL % 0.3 % (0.0-2.0); EOSINOPHIL # 0.2 TH/MM3 (0-0.4); EOSINOPHIL % 1.3 % (0.0-4.0); HEMATOCRIT 25.7 % (39.0-51.0); LYMPHOCYTE # 1.3 TH/MM3 (1.0-4.8); MEAN CELL VOLUME 81.1 FL (80.0-100.0); MEAN CORPUSCULAR HEMOGLOBIN 29.2 PG (27.0-34.0); MONO % 6.6 % (0.0-8.0); NEUT % 80.8 % (16.0-70.0); PLATELET COUNT 485 TH/MM3 (150-450); RED BLOOD COUNT 3.17 MIL/MM3 (4.50-5.90); RED CELL DISTRIBUTION WIDTH 14.2 % (11.6-17.2); WHITE BLOOD COUNT 11.5 TH/MM3 (4.0-11.0)
[2016-08-29 04:28] LABS: HEMO FLAGS AUTO DIFF
[2016-08-29 04:47] LABS: ALKALINE PHOSPHATASE 128 U/L (45-117); TOTAL BILIRUBIN ADULT 4.5 MG/DL (0.2-1.0)
[2016-08-29 04:48] LABS: ALT (GPT) 36 U/L (12-78); ANION GAP 10 MEQ/L (5-15); AST (GOT) 79 U/L (15-37); BICARBONATE 26.2 MEQ/L (21.0-32.0); BLOOD UREA NITROGEN 15 MG/DL (7-18); CHLORIDE 96 MEQ/L (98-107); GLOMERULAR FILTRATION RATE 201 ML/MIN (>89); MAGNESIUM 2.4 MG/DL (1.5-2.5); POTASSIUM 3.8 MEQ/L (3.5-5.1); SODIUM (NA) 132 MEQ/L (136-145)
[2016-08-29] MEDS: HYOSCYAMINE 0.5 MG/ML AMP IVP SCH ×5 (04:53→21:32)
[2016-08-29 05:05] LABS: BLOOD GAS BASE EXCESS 1.7 mmol/L (-2-2); BLOOD GAS CARBOXYHEMOGLOBIN 1.4 % (0-4); BLOOD GAS HCO3 25 mmol/L (22-26); BLOOD GAS METHEMOGLOBIN 0.9 % (0-2); BLOOD GAS O2 HGB SATURATION 95 % (90-100); BLOOD GAS OXYGEN CONTENT 15.5 Vol % (12.0-20.0); BLOOD GAS PCO2 33 mmHg (38-42); BLOOD GAS PO2 89 mmHg (61-120); BLOOD GAS TOTAL HGB 11.6 G/DL (12.0-16.0); CRITICAL VALUE NO; OXYGEN DEVICE VENTILATOR; TEMP CORR TO 98.6
[2016-08-29 05:06] LABS: DRAW SITE RT RADIAL; FIO2 40 %; NUMBER OF ARTERIAL PUNCTURES 1; STAT NO; ULNAR PULSE PRESENT; VENT SETTINGS AC/22/550/PEEP 5
[2016-08-29 05:48] LABS: APTT (PATIENT) 27.3 SEC (24.3-30.1); PROTHROMBIN TIME - PATIENT 10.7 SEC (9.8-11.6)
[2016-08-29] MEDS: MIDAZOLAM 100 MG/ML INJ 100 ML IV SCH (06:10)
[2016-08-29] MEDS: METOCLOPRAMIDE HCL 10 MG/2 ML VIAL IV PUSH SCH ×3 (06:11→21:35)
[2016-08-29 07:03] LABS: PLATELET ESTIMATE SMEAR HIGH (NORMAL); PLATELET MORPHOLOGY NORMAL (NORMAL); SCAN/DIFF AUTO DIFF CONFIRMED
[2016-08-29] MEDS ORDERED: chlorproMAZINE HCL 25 MG TAB PO PRN (07:15)
[2016-08-29] MEDS: CHLORHEXIDINE 0.12% (ORAL KIT) 15 ML CUP MT SCH ×2 (08:00→21:34)
[2016-08-29] MEDS: SODIUM CHLORIDE 0.9% FLUSH 5 ML FLUSH IV FLUSH SCH ×2 (09:00→21:35)
[2016-08-29] MEDS: BACITRACIN TOP OINT 15 GM TUBE TOP SCH ×2 (09:00→21:35)
[2016-08-29] MEDS: DOCUSATE SODIUM 50 MG/SENNA 8.6 MG TAB PO SCH (09:00)
[2016-08-29] MEDS: LACTULOSE SYRUP 20 GM/30 ML CUP PO SCH (09:03)
[2016-08-29] MEDS: MUPIROCIN 2% OINT 1 APPLIC/GM SYR EACH NARE SCH ×2 (09:03→21:32)
[2016-08-29] MEDS: levETIRAcetam INJ 500 MG in SODIUM CHLORIDE 0.9% INJ 100 ML IV SCH ×2 (09:04→21:32)
[2016-08-29] MEDS: PANTOPRAZOLE SODIUM 40 MG VIAL IV SCH (09:05)
[2016-08-29] MEDS: fentaNYL DRIP 250 ML IV SCH ×2 (09:34→18:59)
[2016-08-29] MEDS ORDERED: NORMOSOL R INJ 1,000 ML IV ONE (10:22)
[2016-08-29] MEDS ORDERED: SODIUM CHLORID 0.9% 500 ML INJ 500 ML IV ONE (10:22)
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
[2016-08-29] MEDS ORDERED: GENTAMICIN SULFATE 80 MG/2 ML VIAL ONE ×2 (13:26→13:30)
[2016-08-29] MEDS ORDERED: ceFAZolin INJ 1,000 MG VIAL ONE (13:26)
[2016-08-29] MEDS ORDERED: HEPARIN SODIUM - SQ 10,000 UNITS/ML VIAL ONE (13:30)
[2016-08-29] MEDS ORDERED: VANCOMYCIN HCL 1000 MG VIAL ONE (13:38)
[2016-08-29] MEDS ORDERED: fentaNYL CITRATE 250 MCG/5 ML AMP ONE (14:00)
[2016-08-29] MEDS ORDERED: TRANEXAMIC ACID INJ 659 MG in SODIUM CHLORIDE 0.9% INJ 100 ML IV SCH (14:15)
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
[2016-08-29] MEDS ORDERED: ceFAZolin INJ 1,000 MG VIAL IV ONE (14:55)
[2016-08-29] MEDS: SODIUM CHLORIDE 23.4% INJ 154 MEQ in DEXTROSE 10% INJ 1,000 ML IV SCH (15:00)
[2016-08-29] MEDS ORDERED: HEPARIN SODIUM - SQ 10,000 UNITS/ML VIAL OTHER ONE (15:16)
--- NOTE | 2016-08-29 15:55 | HHI.PR ---
Addendum to Inpatient Note Additional Information attempte to see the pt Pt is off the floor Dana Quinones MD Aug 29, 2016 15:55
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
--- NOTE | 2016-08-29 16:30 | RADRPT ---
EXAM DATE/TIME: 08/29/2016 15:57 [facility] COMPARISON: No previous studies available for comparison. INDICATIONS : ORIF Left Acetabulum. MEDICAL HISTORY : None. SURGICAL HISTORY : None. ENCOUNTER: Initial ACUITY: 1 day PAIN SCORE: Non-responsive. LOCATION: Pelvis. FINDINGS: Status post internal fixation for fractures at the left acetabulum. There is good position and alignm ent of the fracture fragments. Hardware is intact. There is good alignment at the hip joint. CONCLUSION: Good position and alignment on this postoperative study. Eulalio Lawton MD on August 29, 2016 at 16:28 Board Certified Radiologist. This report was verified electronically.
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
[2016-08-29 20:21] LABS: HEMATOCRIT 26.5 % (39.0-51.0); MEAN CELL VOLUME 80.7 FL (80.0-100.0); MEAN CORPUSCULAR HEMOGLOBIN 26.6 PG (27.0-34.0); MEAN CORPUSCULAR HGB CONC 32.9 % (32.0-36.0); PLATELET COUNT 568 TH/MM3 (150-450); RED BLOOD COUNT 3.29 MIL/MM3 (4.50-5.90); REVIEW FLAG FINAL; WHITE BLOOD COUNT 17.4 TH/MM3 (4.0-11.0)
[2016-08-29 20:48] LABS: BICARBONATE 29.3 MEQ/L (21.0-32.0)
[2016-08-29 21:04] LABS: MEAN CORPUSCULAR HGB CONC 36.2 % (32.0-36.0)
[2016-08-29] MEDS: FAT EMULSION 20% INJ 250 ML (Daily over 8 hours) IV-CENTRAL SCH (21:32)
[2016-08-29] MEDS: CLINIMIX E 5/25 1000 mL- </= 42 mls/hr IV-CENTRAL SCH ×3 (21:33)
[2016-08-29] MEDS: MAGNESIUM HYDROXIDE SUSP 30 ML CUP PO SCH (21:37)
[2016-08-30] VITALS (17 sets, daily range): BP systolic 141–157; BP diastolic 87–94; PULSE 100–152; RESP 22–26; TEMP 99.7–102.4; O2SAT 94–99
[2016-08-30] MEDS: HYOSCYAMINE 0.5 MG/ML AMP IVP SCH ×7 (01:39→22:20)
[2016-08-30] MEDS: cefTRIAXone INJ 2,000 MG in SODIUM CHLORIDE 0.9% INJ 100 ML IV SCH (01:39)
[2016-08-30] MEDS: SODIUM CHLOR 0.9% 1000 ML INJ 1,000 ML IV SCH (01:40)
[2016-08-30] MEDS: INSULIN ASPART SUPPLEMENTAL SCALE SQ SCH ×4 (02:00→20:00)
[2016-08-30] MEDS: ACETAMINOPHEN 650 MG/20.3 ML UDC TUBE PRN ×2 (02:39→11:51)
[2016-08-30] MEDS: CHLORHEXIDINE GLUCONATE 2 % 1 PACK (2 CLOTHS) TOP SCH (04:00)
[2016-08-30] MEDS: fentaNYL DRIP 250 ML IV SCH ×3 (04:23→22:19)
[2016-08-30] MEDS: MIDAZOLAM 100 MG/ML INJ 100 ML IV SCH ×2 (04:24→22:19)
[2016-08-30] MEDS: METOCLOPRAMIDE HCL 10 MG/2 ML VIAL IV PUSH SCH ×3 (05:05→22:20)
[2016-08-30 06:06] LABS: BLOOD GAS BASE EXCESS 1.1 mmol/L (-2-2); BLOOD GAS CARBOXYHEMOGLOBIN 1.3 % (0-4); BLOOD GAS HCO3 24 mmol/L (22-26); BLOOD GAS O2 HGB SATURATION 96 % (90-100); BLOOD GAS OXYGEN CONTENT 12.2 Vol % (12.0-20.0); BLOOD GAS PCO2 33 mmHg (38-42); BLOOD GAS PO2 104 mmHg (61-120); BLOOD GAS TOTAL HGB 8.9 G/DL (12.0-16.0); CRITICAL VALUE NO; FIO2 40 %; OXYGEN DEVICE VENTILATOR; TEMP CORR TO 98.6; VENT SETTINGS AC/22/550/PEEP 5
[2016-08-30 06:07] LABS: DRAW SITE RT RADIAL; NUMBER OF ARTERIAL PUNCTURES 1; STAT NO; ULNAR PULSE PRESENT
[2016-08-30 06:08] LABS: AUTOMATED NEUTROPHIL # 9.8 TH/MM3 (1.8-7.7); BASOPHIL # 0.1 TH/MM3 (0-0.2); BASOPHIL % 0.5 % (0.0-2.0); EOSINOPHIL # 0.2 TH/MM3 (0-0.4); EOSINOPHIL % 1.4 % (0.0-4.0); HEMATOCRIT 24.1 % (39.0-51.0); LYMPH % 12.9 % (9.0-44.0); LYMPHOCYTE # 1.6 TH/MM3 (1.0-4.8); MEAN CORPUSCULAR HEMOGLOBIN 29.3 PG (27.0-34.0); MONO % 6.8 % (0.0-8.0); NEUT % 78.4 % (16.0-70.0); PLATELET COUNT 604 TH/MM3 (150-450); RED BLOOD COUNT 2.98 MIL/MM3 (4.50-5.90); RED CELL DISTRIBUTION WIDTH 14.2 % (11.6-17.2); WHITE BLOOD COUNT 12.5 TH/MM3 (4.0-11.0)
[2016-08-30 06:10] LABS: ALKALINE PHOSPHATASE 159 U/L (45-117); TOTAL BILIRUBIN ADULT 4.5 MG/DL (0.2-1.0)
[2016-08-30 06:12] LABS: HEMO FLAGS AUTO DIFF
[2016-08-30 06:15] LABS: ALT (GPT) 45 U/L (12-78); ANION GAP 8 MEQ/L (5-15); AST (GOT) 70 U/L (15-37); BICARBONATE 26.8 MEQ/L (21.0-32.0); BLOOD UREA NITROGEN 17 MG/DL (7-18); CHLORIDE 97 MEQ/L (98-107); GLOMERULAR FILTRATION RATE 175 ML/MIN (>89); MAGNESIUM 2.3 MG/DL (1.5-2.5); POTASSIUM 3.8 MEQ/L (3.5-5.1); SODIUM (NA) 132 MEQ/L (136-145)
--- NOTE | 2016-08-30 07:00 | RADRPT ---
EXAM DATE/TIME: 08/30/2016 05:21 [facility] COMPARISON: CHEST SINGLE AP, August 29, 2016, 3:30. INDICATIONS : Trauma MEDICAL HISTORY : None. SURGICAL HISTORY : None. ENCOUNTER: Subsequent ACUITY: 2 weeks PAIN SCORE: Non-responsive. LOCATION: Bilateral chest FINDINGS: There are small bilateral effusions, and right lower lobe atelectasis/consolidation decreased from pr evious. Patchy left lower lobe airspace disease is also decreased. NG tube side-port overlies the gas tric body. Tracheostomy tube and left subclavian lines are present. Osseous structures are intact. CONCLUSION: Improved aeration at the bases. Michael Valentino MD on August 30, 2016 at 6:58 Board Certified Radiologist. This report was verified electronically.
[2016-08-30] MEDS: CHLORHEXIDINE 0.12% (ORAL KIT) 15 ML CUP MT SCH ×2 (08:00→20:06)
[2016-08-30] MEDS: LACTULOSE SYRUP 20 GM/30 ML CUP PO SCH (08:37)
[2016-08-30] MEDS: MUPIROCIN 2% OINT 1 APPLIC/GM SYR EACH NARE SCH ×2 (08:38→20:06)
[2016-08-30] MEDS: DOCUSATE SODIUM 50 MG/SENNA 8.6 MG TAB PO SCH ×2 (08:38→20:06)
[2016-08-30] MEDS: levETIRAcetam INJ 500 MG in SODIUM CHLORIDE 0.9% INJ 100 ML IV SCH ×2 (08:38→20:06)
[2016-08-30] MEDS: PANTOPRAZOLE SODIUM 40 MG VIAL IV SCH (08:38)
[2016-08-30] MEDS: BACITRACIN TOP OINT 15 GM TUBE TOP SCH ×2 (08:39→22:12)
[2016-08-30] MEDS: SODIUM CHLORIDE 0.9% FLUSH 5 ML FLUSH IV FLUSH SCH ×2 (08:39→20:07)
[2016-08-30] MEDS ORDERED: METOPROLOL TARTRATE 5 MG/5 ML VIAL ONE (09:06)
[2016-08-30] MEDS ORDERED: METOPROLOL TARTRATE 5 MG/5 ML VIAL IV PUSH ONE (09:15)
[2016-08-30] MEDS: METOPROLOL TARTRATE 25 MG TAB PO SCH ×3 (10:20→20:05)
--- NOTE | 2016-08-30 11:16 | PD.ORT.PN ---
Subjective Subjective Remarks Sedated Trach in place Objective Vitals Vital Signs Date Time Temp Pulse Resp B/P Pulse Ox O2 Delivery O2 Flow Rate FiO2 08/30/16 06:00 109 08/30/16 04:00 108 08/30/16 04:00 100.2 108 26 150/87 97 08/30/16 04:00 40 08/30/16 03:32 96 40 08/30/16 02:00 152 08/30/16 00:00 134 08/30/16 00:00 40 08/30/16 00:00 99.9 134 22 141/89 94 08/29/16 22:00 122 08/29/16 20:00 117 08/29/16 20:00 99.2 102 30 140/89 87 08/29/16 20:00 40 08/29/16 19:28 99 40 08/29/16 18:00 40 08/29/16 18:00 93 08/29/16 17:42 97 60 08/29/16 17:00 97.8 94 20 130/80 98 08/29/16 14:00 92 08/29/16 13:00 100 100 08/29/16 12:34 99 40 08/29/16 12:00 100.0 89 23 153/94 100 08/29/16 12:00 40 08/29/16 12:00 92 I/O 08/29/16 08/29/16 08/29/16 08/30/16 08/30/16 08/30/16 07:00 15:00 23:00 07:00 15:00 23:00 Intake Total 934 ml 904 ml 1747 ml Output Total 1800 ml 1950 ml 1700 ml 975 ml Balance -866 ml -1950 ml -796 ml 772 ml Intake IV Total 535 ml 416 ml 1220 ml TPN/PPN 229 ml 488 ml 225 ml Lipid 170 ml 302 ml Output Urine Total 1800 ml 1700 ml 1700 ml 650 ml Gastric Drainage Total 250 ml 325 ml # Bowel Movements 0 0 Result Diagram: 08/30/1615 08/30/16 0515 Imaging Last 24 hours Impressions Chest X-Ray 08/18/16 0600 Signed Impressions: Service Date/Time: Thursday, August 18, 2016 05:09 - CONCLUSION: 1. No acute cardiopulmonary disease. Leonidas Franco MD Objective Remarks RLE: + skeletal traction. good cap refill. pin sites clean LLE: dressings clean and dry. intact. +drain. +knee brace No motor function left lower extremity Assessment & Plan Problem List: (1) Diffuse axonal brain injury (2) SAH (subarachnoid hemorrhage) (3) Nikky-prosthetic femur fracture at tip of prosthesis (4) Acetabulum fracture, left (5) Pubic ramus fracture (6) Lumbar transverse process fracture Assessment and Plan 1) Right Periprosthetic Femur Fx -skeletal traction 2) Left Acetabulum fx with hip dislocation s/p ORIF - POD 1 -NWB -daily dressing changes POD 2 -plan for DC of drain POD 2/3 -will re-eval next week for fixation of right femur Franki Wilkerson MD Aug 30, 2016 11:16
[2016-08-30] MEDS: 3% SALINE INJ 500 ML IV SCH (11:51)
[2016-08-30 12:32] LABS: BANDS 13 % (0-6); MYELOCYTES 1 % (0-0); NEUTROPHIL # MANUAL DIFF 10.6 TH/MM3 (1.8-7.7); PLATELET ESTIMATE SMEAR HIGH (NORMAL); PLATELET MORPHOLOGY NORMAL (NORMAL); POLYS (SEG NEUTROPHILS) 71 % (16-70); SCAN/DIFF FINAL DIFF MANUAL; WBC DIFF SAMPLE 100
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
[2016-08-30] MEDS ORDERED: MAGNESIUM CITRATE SOLN 300 ML BTL PO ONE (13:00)
[2016-08-30] MEDS ORDERED: ALTEPLASE RECOMBINANT 2 MG VIAL INTRACATH ONE (14:00)
--- NOTE | 2016-08-30 14:38 | EKG ---
Date Performed: 08/30/2016 Time Performed: 02:14:10 PTAGE: 35 years EKG: Sinus tachycardia Borderline poor R wave progression Abnormal ECG NO PREVIOUS TRACING DOCTOR: Ryder Wood Interpretating Date/Time 08/30/2016 14:36:14
[2016-08-30] MEDS: SODIUM CHLORIDE 23.4% INJ 154 MEQ in DEXTROSE 10% INJ 1,000 ML IV SCH (15:00)
--- NOTE | 2016-08-30 15:19 | RADRPT ---
EXAM DATE/TIME: 08/30/2016 13:19 [facility] COMPARISON: ABDOMEN KUB ONLY, August 20, 2016, 11:51. INDICATIONS : Abdominal distension, constipation MEDICAL HISTORY : None. SURGICAL HISTORY : None. ENCOUNTER: Initial ACUITY: 1 day PAIN SCORE: Non-responsive. LOCATION: Abdomen FINDINGS: Supine view of the abdomen was performed. The abdominal bowel gas pattern is normal. No abnormal ma sses, calcifications, or organomegaly is seen. Right hip prosthesis. Plate and screws along the left acetabulum. Post surgical changes. Percutaneous gastrostomy tube. CONCLUSION: No acute abnormalities of the abdomen. Constantin Burkett MD on August 30, 2016 at 15:17 Board Certified Radiologist. This report was verified electronically.
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
[2016-08-30] MEDS ORDERED: Vancomycin Consult Pharmacy 1 EA IV SCH (17:30)
[2016-08-30] MEDS: PIPERACIL-TAZO 4.5 GM PREMIX 100 ML IV SCH ×2 (17:53→22:19)
[2016-08-30] MEDS: VANCOMYCIN 1,000 MG/NS 250 ML IV SCH ×2 (18:00)
[2016-08-30] MEDS: CLINIMIX E 5/25 1000 mL- </= 42 mls/hr IV-CENTRAL SCH ×3 (20:04)
[2016-08-30] MEDS: FAT EMULSION 20% INJ 250 ML (Daily over 8 hours) IV-CENTRAL SCH (20:05)
[2016-08-30] MEDS: MAGNESIUM HYDROXIDE SUSP 30 ML CUP PO SCH (20:05)
[2016-08-31] VITALS (18 sets, daily range): BP systolic 131–145; BP diastolic 66–94; PULSE 105–124; RESP 24–27; TEMP 100–102; O2SAT 96–100
[2016-08-31] MEDS: VANCOMYCIN 1,000 MG/NS 250 ML IV SCH ×6 (01:37→17:43)
[2016-08-31] MEDS: METOPROLOL TARTRATE 25 MG TAB PO SCH ×4 (01:37→19:35)
[2016-08-31] MEDS: SODIUM CHLOR 0.9% 1000 ML INJ 1,000 ML IV SCH (01:38)
[2016-08-31] MEDS: INSULIN ASPART SUPPLEMENTAL SCALE SQ SCH ×4 (02:00→20:00)
[2016-08-31] MEDS: CHLORHEXIDINE GLUCONATE 2 % 1 PACK (2 CLOTHS) TOP SCH (04:00)
[2016-08-31] MEDS: ACETAMINOPHEN 650 MG/20.3 ML UDC TUBE PRN ×3 (04:19→23:38)
[2016-08-31] MEDS: PIPERACIL-TAZO 4.5 GM PREMIX 100 ML IV SCH ×4 (04:20→22:13)
[2016-08-31] MEDS: HYOSCYAMINE 0.5 MG/ML AMP IVP SCH (04:20)
[2016-08-31] MEDS: METOCLOPRAMIDE HCL 10 MG/2 ML VIAL IV PUSH SCH ×3 (04:20→20:40)
[2016-08-31] MEDS: 3% SALINE INJ 500 ML IV SCH (04:24)
[2016-08-31 06:04] LABS: HEMATOCRIT 23.8 % (39.0-51.0); MEAN CELL VOLUME 81.1 FL (80.0-100.0); MEAN CORPUSCULAR HEMOGLOBIN 27.2 PG (27.0-34.0); MEAN CORPUSCULAR HGB CONC 33.5 % (32.0-36.0); PLATELET COUNT 591 TH/MM3 (150-450); RED BLOOD COUNT 2.94 MIL/MM3 (4.50-5.90); RED CELL DISTRIBUTION WIDTH 14.6 % (11.6-17.2); REVIEW FLAG FINAL; WHITE BLOOD COUNT 17.3 TH/MM3 (4.0-11.0)
[2016-08-31 06:28] LABS: BICARBONATE 25.6 MEQ/L (21.0-32.0); POTASSIUM 3.8 MEQ/L (3.5-5.1)
[2016-08-31] MEDS: HYOSCYAMINE 0.5 MG/ML AMP IVP PRN ×2 (09:15→23:34)
[2016-08-31] MEDS: levETIRAcetam INJ 500 MG in SODIUM CHLORIDE 0.9% INJ 100 ML IV SCH ×2 (09:16→19:35)
[2016-08-31] MEDS: PANTOPRAZOLE SODIUM 40 MG VIAL IV SCH (09:16)
[2016-08-31] MEDS: MUPIROCIN 2% OINT 1 APPLIC/GM SYR EACH NARE SCH ×2 (09:16→19:35)
[2016-08-31] MEDS: CHLORHEXIDINE 0.12% (ORAL KIT) 15 ML CUP MT SCH ×2 (09:16→19:29)
[2016-08-31] MEDS: BACITRACIN TOP OINT 15 GM TUBE TOP SCH ×2 (09:17→19:28)
[2016-08-31] MEDS: LACTULOSE SYRUP 20 GM/30 ML CUP PO SCH (09:17)
[2016-08-31] MEDS: SODIUM CHLORIDE 0.9% FLUSH 5 ML FLUSH IV FLUSH SCH ×2 (09:17→19:29)
[2016-08-31] MEDS: DOCUSATE SODIUM 50 MG/SENNA 8.6 MG TAB PO SCH ×2 (09:17→19:28)
[2016-08-31] MEDS: LEVOFLOXACIN 750 MG PREMIX INJ 150 ML IV SCH (09:19)
[2016-08-31] MEDS: MICAFUNGIN INJ 150 MG in SODIUM CHLORIDE 0.9% INJ 100 ML IV SCH (11:06)
[2016-08-31 12:24] LABS: BLOOD, URINE NEG (NEG); COMMENT (UR) CULT NOT INDICATED; CULTURE IF INDICATED CULT NOT INDICATED; GLUCOSE,URINE NEG (NEG); KETONE, URINE NEG (NEG); MUCUS URINE FEW /lpf (OCC); NITRITE,URINE NEG (NEG); URINE COLOR DARK-YELLOW (YELLW/STRAW)
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
--- NOTE | 2016-08-31 18:19 | PD.ORT.PN ---
Subjective Subjective Remarks Patient sedated. Trach in place. Father at bedside. Objective Vitals Vital Signs Date Time Temp Pulse Resp B/P Pulse Ox O2 Delivery O2 Flow Rate FiO2 08/31/16 18:00 117 08/31/16 16:24 97 40 08/31/16 16:00 40 08/31/16 16:00 113 08/31/16 16:00 101.1 114 25 131/66 97 08/31/16 14:00 118 08/31/16 12:00 40 08/31/16 12:00 110 08/31/16 12:00 100.6 121 24 132/78 97 08/31/16 11:26 98 40 08/31/16 10:45 40 08/31/16 10:00 110 08/31/16 08:31 96 40 08/31/16 08:00 40 08/31/16 08:00 118 08/31/16 08:00 100.4 118 24 132/75 97 08/31/16 06:00 117 08/31/16 04:00 109 08/31/16 04:00 40 08/31/16 04:00 102.0 109 26 139/88 97 08/31/16 03:23 100 40 08/31/16 02:00 105 08/31/16 00:12 98 40 08/31/16 00:00 40 08/31/16 00:00 119 08/31/16 00:00 100.2 119 27 145/94 96 08/30/16 22:00 114 08/30/16 21:09 97 40 08/30/16 20:00 101.1 100 26 146/93 98 08/30/16 20:00 100 08/30/16 20:00 40 I/O 08/30/16 08/30/16 08/30/16 08/31/16 08/31/16 08/31/16 07:00 15:00 23:00 07:00 15:00 23:00 Intake Total 1747 ml 1199 ml 1213 ml 2015 ml 2025 ml Output Total 975 ml 1100 ml 1210 ml 1600 ml 1805 ml Balance 772 ml 99 ml 3 ml 415 ml 220 ml Intake IV Total 1220 ml 930 ml 962 ml 1413 ml 1662 ml Tube Feeding 10 ml 71 ml 103 ml TPN/PPN 225 ml 269 ml 191 ml 239 ml 260 ml Lipid 302 ml 242 ml Tube Irrigant 50 ml 50 ml Output Urine Total 650 ml 750 ml 900 ml 1600 ml 1800 ml Gastric Drainage Total 325 ml 350 ml 300 ml Drainage Total 10 ml 0 ml 5 ml # Bowel Movements 0 0 0 0 1 Result Diagram: 08/31/16 0600 08/31/16 1245 Imaging Last 24 hours Impressions Chest X-Ray 08/18/16 0600 Signed Impressions: Service Date/Time: Thursday, August 18, 2016 05:09 - CONCLUSION: 1. No acute cardiopulmonary disease. Leonidas Franco MD Objective Remarks RLE: + skeletal traction. good cap refill. pin sites clean LLE: dressings clean and dry. intact. +drain. +knee brace. No motor function left lower extremity 2+ dorsalis pedis pulses Assessment & Plan Problem List: (1) Diffuse axonal brain injury (2) SAH (subarachnoid hemorrhage) (3) Nikky-prosthetic femur fracture at tip of prosthesis (4) Acetabulum fracture, left (5) Pubic ramus fracture (6) Lumbar transverse process fracture Assessment and Plan 1) Right Periprosthetic Femur Fx -skeletal traction 2) Left Acetabulum fx with hip dislocation s/p ORIF -NWB -daily dressing changes POD 2 -plan for DC of drain POD 2/3 -will re-eval next week for fixation of right femur Yariel Carlson Aug 31, 2016 18:18
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
[2016-08-31] MEDS: fentaNYL DRIP 250 ML IV SCH (19:27)
[2016-08-31] MEDS: MAGNESIUM HYDROXIDE SUSP 30 ML CUP PO SCH (19:28)
[2016-08-31] MEDS: QUEtiapine FUMARATE 25 MG TAB PO SCH (19:28)
[2016-08-31] MEDS: oxyCODONE/ACETAMINOPHEN 5 MG/325 MG TAB PO PRN ×2 (19:28→23:33)
[2016-08-31] MEDS: FAT EMULSION 20% INJ 250 ML (Daily over 8 hours) IV-CENTRAL SCH (19:29)
[2016-08-31] MEDS ORDERED: [UNRECOGNIZED DRUG - OTHER] IV-CENTRAL SCH ×9 (20:00)
[2016-08-31] MEDS ORDERED: SODIUM CHLORIDE IV-CENTRAL SCH ×9 (20:00)
[2016-08-31] MEDS ORDERED: SODIUM ACETATE IV-CENTRAL SCH ×9 (20:00)
[2016-09-01] VITALS (19 sets, daily range): BP systolic 132–172; BP diastolic 80–109; PULSE 104–140; RESP 20–28; TEMP 100.2–101.1; O2SAT 98–100
[2016-09-01] MEDS: VANCOMYCIN 1,000 MG/NS 250 ML IV SCH ×4 (01:30→09:55)
[2016-09-01] MEDS: INSULIN ASPART SUPPLEMENTAL SCALE SQ SCH ×4 (01:31→20:00)
[2016-09-01] MEDS ORDERED: PHARMACY ORDERED LAB XX ONE (01:45)
[2016-09-01] MEDS: METOPROLOL TARTRATE 25 MG TAB PO SCH ×4 (01:51→20:46)
[2016-09-01] MEDS: CHLORHEXIDINE GLUCONATE 2 % 1 PACK (2 CLOTHS) TOP SCH (04:00)
[2016-09-01] MEDS: PIPERACIL-TAZO 4.5 GM PREMIX 100 ML IV SCH ×4 (04:32→22:41)
[2016-09-01] MEDS: METOCLOPRAMIDE HCL 10 MG/2 ML VIAL IV PUSH SCH ×3 (04:32→20:47)
[2016-09-01] MEDS: 3% SALINE INJ 500 ML IV-CENTRAL SCH ×2 (04:33→14:49)
[2016-09-01 05:06] LABS: BLOOD GAS BASE EXCESS 0.9 mmol/L (-2-2); BLOOD GAS CARBOXYHEMOGLOBIN 1.6 % (0-4); BLOOD GAS HCO3 25 mmol/L (22-26); BLOOD GAS METHEMOGLOBIN 0.7 % (0-2); BLOOD GAS O2 HGB SATURATION 97 % (90-100); BLOOD GAS OXYGEN CONTENT 10.5 Vol % (12.0-20.0); BLOOD GAS PCO2 38 mmHg (38-42); BLOOD GAS PO2 125 mmHg (61-120); BLOOD GAS TOTAL HGB 7.5 G/DL (12.0-16.0); CRITICAL VALUE NO; DRAW SITE LT BRACHIAL; FIO2 40 %; NUMBER OF ARTERIAL PUNCTURES 1; OXYGEN DEVICE VENTILATOR; STAT NO; TEMP CORR TO 98.6; VENT SETTINGS AC/16/450/PEEP5
[2016-09-01 06:09] LABS: AUTOMATED NEUTROPHIL # 9.4 TH/MM3 (1.8-7.7); BASOPHIL # 0.1 TH/MM3 (0-0.2); BASOPHIL % 0.9 % (0.0-2.0); EOSINOPHIL # 0.5 TH/MM3 (0-0.4); HEMATOCRIT 21.9 % (39.0-51.0); HEMO FLAGS DIFF FINAL; LYMPH % 14.3 % (9.0-44.0); LYMPHOCYTE # 1.8 TH/MM3 (1.0-4.8); MEAN CELL VOLUME 82.3 FL (80.0-100.0); MEAN CORPUSCULAR HEMOGLOBIN 27.2 PG (27.0-34.0); MONO % 6.8 % (0.0-8.0); PLATELET COUNT 696 TH/MM3 (150-450); RED BLOOD COUNT 2.66 MIL/MM3 (4.50-5.90); RED CELL DISTRIBUTION WIDTH 14.8 % (11.6-17.2); WHITE BLOOD COUNT 12.6 TH/MM3 (4.0-11.0)
[2016-09-01 06:33] LABS: ALT (GPT) 41 U/L (12-78); ANION GAP 7 MEQ/L (5-15); AST (GOT) 55 U/L (15-37); BLOOD UREA NITROGEN 12 MG/DL (7-18); CHLORIDE 103 MEQ/L (98-107); GLOMERULAR FILTRATION RATE 201 ML/MIN (>89); POTASSIUM 3.6 MEQ/L (3.5-5.1); SODIUM (NA) 137 MEQ/L (136-145)
[2016-09-01 06:36] LABS: ALKALINE PHOSPHATASE 166 U/L (45-117); TOTAL BILIRUBIN ADULT 1.5 MG/DL (0.2-1.0)
--- NOTE | 2016-09-01 06:43 | RADRPT ---
EXAM DATE/TIME: 09/01/2016 05:18 [facility] COMPARISON: CHEST SINGLE AP, August 30, 2016, 5:21. INDICATIONS : Shortness of breath, possible pulmonary disease. MEDICAL HISTORY : None. SURGICAL HISTORY : None. ENCOUNTER: Subsequent ACUITY: 2 weeks PAIN SCORE: Non-responsive. LOCATION: Bilateral chest FINDINGS: Left central line in superior vena cava. Tracheostomy in satisfactory position. Basilar airspace dise ase similar to August 30. No significant effusion. CONCLUSION: 1. Basilar airspace disease similar to August 30. Previous nasogastric tube removed. Left central l ine and tracheostomy in satisfactory position. Vishal Teran MD on September 01, 2016 at 6:41 Board Certified Radiologist. This report was verified electronically.
--- NOTE | 2016-09-01 07:25 | PD.ORT.PN ---
Subjective Subjective Remarks POD 3 s/p ORIF left acetabulum s/p right periprosthetic femur fx with skeletal traction Objective Vitals Vital Signs Date Time Temp Pulse Resp B/P Pulse Ox O2 Delivery O2 Flow Rate FiO2 09/01/16 06:00 116 09/01/16 05:15 98 40 09/01/16 04:00 100.4 113 20 136/80 98 09/01/16 04:00 113 09/01/16 04:00 113 09/01/16 04:00 40 09/01/16 02:00 126 09/01/16 01:20 98 40 09/01/16 00:00 100.9 140 22 132/81 99 09/01/16 00:00 40 09/01/16 00:00 140 08/31/16 22:00 117 08/31/16 22:00 117 08/31/16 21:33 100 40 08/31/16 20:00 40 08/31/16 20:00 124 08/31/16 20:00 100.0 124 26 144/93 99 08/31/16 18:00 117 08/31/16 16:24 97 40 08/31/16 16:00 40 08/31/16 16:00 113 08/31/16 16:00 101.1 114 25 131/66 97 08/31/16 14:00 118 08/31/16 12:00 40 08/31/16 12:00 110 08/31/16 12:00 100.6 121 24 132/78 97 08/31/16 11:26 98 40 08/31/16 10:45 40 08/31/16 10:00 110 08/31/16 08:31 96 40 08/31/16 08:00 40 08/31/16 08:00 118 08/31/16 08:00 100.4 118 24 132/75 97 I/O 08/31/16 08/31/16 08/31/16 09/01/16 09/01/16 09/01/16 07:00 15:00 23:00 07:00 15:00 23:00 Intake Total 2015 ml 2025 ml 1717 ml 2274 ml Output Total 1600 ml 1805 ml 1365 ml 1905 ml Balance 415 ml 220 ml 352 ml 369 ml Intake IV Total 1413 ml 1662 ml 1236 ml 1284 ml Tube Feeding 71 ml 103 ml 140 ml 267 ml TPN/PPN 239 ml 260 ml 221 ml 379 ml Lipid 242 ml 244 ml Tube Irrigant 50 ml 120 ml 100 ml Output Urine Total 1600 ml 1800 ml 1350 ml 1900 ml Drainage Total 0 ml 5 ml 15 ml 5 ml # Bowel Movements 0 0 1 0 Result Diagram: 09/01/16 0550 09/01/16 0550 Imaging Last 24 hours Impressions Chest X-Ray 08/18/16 0600 Signed Impressions: Service Date/Time: Thursday, August 18, 2016 05:09 - CONCLUSION: 1. No acute cardiopulmonary disease. Leonidas Franco MD Objective Remarks RLE: + skeletal traction. good cap refill. pin sites clean LLE: dressings clean and dry. intact. +drain. +knee brace. No motor function left lower extremity 2+ dorsalis pedis pulses Assessment & Plan Problem List: (1) Diffuse axonal brain injury (2) SAH (subarachnoid hemorrhage) (3) Nikky-prosthetic femur fracture at tip of prosthesis (4) Acetabulum fracture, left (5) Pubic ramus fracture (6) Lumbar transverse process fracture Assessment and Plan 1) Right Periprosthetic Femur Fx -skeletal traction 2) Left Acetabulum fx with hip dislocation s/p ORIF POD 3 -NWB -daily dressing changes POD 2 -plan for DC of drain POD 2/3 -plan for OR tomorrow for right femur Gordon Olea Sep 01, 2016 07:25
[2016-09-01] MEDS: CHLORHEXIDINE 0.12% (ORAL KIT) 15 ML CUP MT SCH ×2 (08:29→20:48)
[2016-09-01] MEDS: PANTOPRAZOLE SODIUM 40 MG VIAL IV SCH (08:30)
[2016-09-01] MEDS: levETIRAcetam INJ 500 MG in SODIUM CHLORIDE 0.9% INJ 100 ML IV SCH ×2 (08:30→20:46)
[2016-09-01] MEDS: LEVOFLOXACIN 750 MG PREMIX INJ 150 ML IV SCH (08:30)
[2016-09-01] MEDS: LACTULOSE SYRUP 20 GM/30 ML CUP PO SCH (08:30)
[2016-09-01] MEDS: MUPIROCIN 2% OINT 1 APPLIC/GM SYR EACH NARE SCH ×2 (08:30→20:46)
[2016-09-01] MEDS: DOCUSATE SODIUM 50 MG/SENNA 8.6 MG TAB PO SCH ×2 (08:30→20:46)
[2016-09-01] MEDS: BACITRACIN TOP OINT 15 GM TUBE TOP SCH ×2 (08:31→20:47)
[2016-09-01] MEDS: QUEtiapine FUMARATE 25 MG TAB PO SCH ×2 (08:31→20:46)
[2016-09-01] MEDS: SODIUM CHLORIDE 0.9% FLUSH 5 ML FLUSH IV FLUSH SCH ×2 (08:32→20:47)
[2016-09-01] MEDS: oxyCODONE/ACETAMINOPHEN 5 MG/325 MG TAB PO PRN ×4 (08:34→22:56)
[2016-09-01] MEDS ORDERED: SODIUM CHLOR 0.9% 250 ML INJ 250 ML IV ONE (09:45)
[2016-09-01] MEDS: MICAFUNGIN INJ 150 MG in SODIUM CHLORIDE 0.9% INJ 100 ML IV SCH (09:55)
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
[2016-09-01] MEDS: VANCOMYCIN INJ 1,250 MG in SODIUM CHLOR 0.9% 250 ML INJ 250 ML IV SCH (18:14)
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
[2016-09-01] MEDS: ACETAMINOPHEN 650 MG/20.3 ML UDC TUBE PRN (20:46)
[2016-09-01] MEDS: MAGNESIUM HYDROXIDE SUSP 30 ML CUP PO SCH (20:46)
[2016-09-02] VITALS (17 sets, daily range): BP systolic 125–161; BP diastolic 86–103; PULSE 85–120; RESP 22–28; TEMP 98.2–101.8; O2SAT 96–100
[2016-09-02] MEDS: VANCOMYCIN INJ 1,250 MG in SODIUM CHLOR 0.9% 250 ML INJ 250 ML IV SCH ×3 (00:13→18:48)
[2016-09-02] MEDS: INSULIN ASPART SUPPLEMENTAL SCALE SQ SCH ×4 (02:00→20:00)
[2016-09-02] MEDS: CHLORHEXIDINE GLUCONATE 2 % 1 PACK (2 CLOTHS) TOP SCH (02:30)
[2016-09-02] MEDS: METOPROLOL TARTRATE 25 MG TAB PO SCH ×4 (02:30→20:53)
[2016-09-02] MEDS: oxyCODONE/ACETAMINOPHEN 5 MG/325 MG TAB PO PRN ×4 (03:17→20:53)
[2016-09-02] MEDS: ACETAMINOPHEN 650 MG/20.3 ML UDC TUBE PRN (03:17)
[2016-09-02] MEDS: METOCLOPRAMIDE HCL 10 MG/2 ML VIAL IV PUSH SCH (04:53)
[2016-09-02] MEDS: PIPERACIL-TAZO 4.5 GM PREMIX 100 ML IV SCH ×4 (04:53→23:10)
[2016-09-02 05:08] LABS: AUTOMATED NEUTROPHIL # 9.2 TH/MM3 (1.8-7.7); BASOPHIL # 0.1 TH/MM3 (0-0.2); BASOPHIL % 0.8 % (0.0-2.0); EOSINOPHIL # 0.4 TH/MM3 (0-0.4); EOSINOPHIL % 3.1 % (0.0-4.0); HEMATOCRIT 25.7 % (39.0-51.0); HEMO FLAGS DIFF FINAL; LYMPH % 15.7 % (9.0-44.0); MEAN CELL VOLUME 80.5 FL (80.0-100.0); MEAN CORPUSCULAR HEMOGLOBIN 27.4 PG (27.0-34.0); MONO % 7.2 % (0.0-8.0); NEUT % 73.2 % (16.0-70.0); PLATELET COUNT 830 TH/MM3 (150-450); RED CELL DISTRIBUTION WIDTH 14.6 % (11.6-17.2); WHITE BLOOD COUNT 12.5 TH/MM3 (4.0-11.0)
[2016-09-02 05:36] LABS: MAGNESIUM 2.2 MG/DL (1.5-2.5); POTASSIUM 3.9 MEQ/L (3.5-5.1)
[2016-09-02] MEDS: 3% SALINE INJ 500 ML IV-CENTRAL SCH ×2 (06:02→18:49)
[2016-09-02] MEDS: CHLORHEXIDINE 0.12% (ORAL KIT) 15 ML CUP MT SCH ×2 (08:31→20:54)
[2016-09-02] MEDS: LEVOFLOXACIN 750 MG PREMIX INJ 150 ML IV SCH (08:32)
[2016-09-02] MEDS: levETIRAcetam INJ 500 MG in SODIUM CHLORIDE 0.9% INJ 100 ML IV SCH ×2 (08:32→20:53)
[2016-09-02] MEDS: DOCUSATE SODIUM 50 MG/SENNA 8.6 MG TAB PO SCH ×2 (08:33→20:53)
[2016-09-02] MEDS: LACTULOSE SYRUP 20 GM/30 ML CUP PO SCH (08:33)
[2016-09-02] MEDS: BACITRACIN TOP OINT 15 GM TUBE TOP SCH ×2 (08:34→20:54)
[2016-09-02] MEDS: SODIUM CHLORIDE 0.9% FLUSH 5 ML FLUSH IV FLUSH SCH ×2 (08:34→20:53)
[2016-09-02] MEDS: QUEtiapine FUMARATE 25 MG TAB PO SCH ×2 (08:44→20:53)
[2016-09-02] MEDS: PANTOPRAZOLE SODIUM 40 MG VIAL IV SCH (08:44)
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
[2016-09-02] MEDS: MICAFUNGIN INJ 150 MG in SODIUM CHLORIDE 0.9% INJ 100 ML IV SCH (09:49)
--- NOTE | 2016-09-02 11:30 | HHI.PR ---
Neuropsych Progress Notes/Response to Tx Contents of Sessions: Level of Consciousness Time with Patient: 15 minutes Premorbid psychological status Premorbid Cognitive, Emotional and Behavioral Status: Stable. The patient has 12 years of education but was on social security disability for a orthopedic injury. 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 It is reported that he is , but has no children. Behavioral Reactions of Patient and Family/Support System: Stable. The patient s family is here from [facility], which is where they wish to bring him back to once medically stable. Emotional/Behavioral Status of Patient and Family/Support System: Stable. Pertinent issues, if appropriate to this patients clinical care, are described in detail above. Maximizing acute care outcome It is recommended that the patient be monitored for emergent behavioral impulsivity as the medical condition evolves. This patients neuropathological challenges may limit their rehabilitation potential going forward, and these challenges will require specialized therapeutic skills to maximize outcome. Additionally, the patients family is experiencing ongoing issues of adjustment given the traumatic nature of the injury, and they may benefit from ongoing psychological assistance. Anticipated Problems Ongoing areas of concern will include behavioral impulsivity, lack of insight and judgment, which is expected to improve with time and treatment. Presently , the patient is not following commands. Treatment Plan This clinician will continue to follow with you throughout the course of this patients rehabilitation treatment, and I will be available to meet with the patients family/support system to facilitate their understanding and the ongoing care of their family member. The goals of neuropsychological intervention shall be both educational and supportive to the family/support system as is deemed clinically appropriate. [facility] Level: I:No response-total assistance Diagnosis: (1) Major neurocognitive disorder as late effect of traumatic brain injury with behavioral disturbance Status: Acute (2) SAH (subarachnoid hemorrhage) Status: Acute Progress Note Narrative Ongoing follow-up of patient, who was seen within the context of daily trauma rounding. It was reported that the patient had a period of agitation that was treated with seroquel, which in light of presumed psychiatric difficulties, would appear to be an appropriate approach at this point in his recovery process. I will continue to follow with you. Maurilio Hunter PhD Sep 02, 2016 11:30 am
[2016-09-02] MEDS ORDERED: PHENYLEPH/NS 1000 MCG/10 ML SYR IV ONE (13:18)
[2016-09-02] MEDS ORDERED: PROPOFOL 200 MG/20 ML AMP IV ONE (13:18)
[2016-09-02] MEDS ORDERED: LACTATED RINGER'S 1000 ML INJ 1,000 ML IV ONE (13:18)
[2016-09-02] MEDS ORDERED: SODIUM CHLORID 0.9% 500 ML INJ 500 ML IV ONE (13:19)
[2016-09-02] MEDS ORDERED: GENTAMICIN SULFATE 80 MG/2 ML VIAL ONE (14:37)
[2016-09-02] MEDS ORDERED: TRANEXAMIC ACID INJ 780 MG in SODIUM CHLORIDE 0.9% INJ 100 ML IV SCH (14:45)
[2016-09-02] MEDS ORDERED: PHARMACY ORDERED LAB XX ONE (17:45)
[2016-09-02 17:58] LABS: VANCOMYCIN TROUGH 12.6 MCG/ML (5.0-10.0)
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
[2016-09-02] MEDS ORDERED: fentaNYL CITRATE 250 MCG/5 ML AMP ONE ×2 (20:18→20:19)
[2016-09-02] MEDS: MAGNESIUM HYDROXIDE SUSP 30 ML CUP PO SCH (20:53)
--- NOTE | 2016-09-02 20:53 | RADRPT ---
EXAM DATE/TIME: 09/02/2016 19:11 [facility] COMPARISON: FEMUR RIGHT (AP & LAT/2VWS), August 17, 2016, 19:56. INDICATIONS : ORIF right proximal femur. MEDICAL HISTORY : None. SURGICAL HISTORY : Right total hip replacement ENCOUNTER: Subsequent ACUITY: 2 weeks PAIN SCORE: Non-responsive. LOCATION: Right proximal femur FINDINGS: Two view examination of the right femur demonstrates open reduction and internal fixation of a proxim al to mid femoral shaft fracture just below the stem of a prosthesis. Next medullary plate has been a pplied. There is satisfactory alignment of the fracture fragments. CONCLUSION: Status post ORIF of a right femoral shaft fracture with an extra medullary plate. Right hip replacement. Manohar Padgett MD on September 02, 2016 at 20:50 Board Certified Radiologist. This report was verified electronically.
[2016-09-03] VITALS (20 sets, daily range): BP systolic 153–161; BP diastolic 95–103; PULSE 72–118; RESP 20–30; TEMP 99–102; O2SAT 94–100
[2016-09-03] MEDS: oxyCODONE/ACETAMINOPHEN 5 MG/325 MG TAB PO PRN ×5 (00:55→20:11)
[2016-09-03] MEDS: 3% SALINE INJ 500 ML IV-CENTRAL SCH ×2 (00:56→18:46)
[2016-09-03] MEDS: VANCOMYCIN INJ 1,250 MG in SODIUM CHLOR 0.9% 250 ML INJ 250 ML IV SCH ×3 (00:56→17:45)
[2016-09-03] MEDS: INSULIN ASPART SUPPLEMENTAL SCALE SQ SCH ×4 (02:00→20:00)
[2016-09-03] MEDS: METOPROLOL TARTRATE 25 MG TAB PO SCH ×4 (02:06→21:30)
[2016-09-03] MEDS: CHLORHEXIDINE GLUCONATE 2 % 1 PACK (2 CLOTHS) TOP SCH (04:00)
[2016-09-03] MEDS: ACETAMINOPHEN 650 MG/20.3 ML UDC TUBE PRN ×2 (04:30→15:58)
[2016-09-03] MEDS: PIPERACIL-TAZO 4.5 GM PREMIX 100 ML IV SCH ×4 (04:31→23:43)
[2016-09-03 06:21] LABS: AUTOMATED NEUTROPHIL # 11.9 TH/MM3 (1.8-7.7); BASOPHIL # 0.1 TH/MM3 (0-0.2); BASOPHIL % 0.6 % (0.0-2.0); EOSINOPHIL # 0.1 TH/MM3 (0-0.4); EOSINOPHIL % 0.5 % (0.0-4.0); HEMATOCRIT 22.3 % (39.0-51.0); HEMO FLAGS DIFF FINAL; LYMPH % 10.5 % (9.0-44.0); LYMPHOCYTE # 1.6 TH/MM3 (1.0-4.8); MEAN CELL VOLUME 80.9 FL (80.0-100.0); MEAN CORPUSCULAR HEMOGLOBIN 28.7 PG (27.0-34.0); MEAN CORPUSCULAR HGB CONC 35.4 % (32.0-36.0); MONO % 8.2 % (0.0-8.0); NEUT % 80.2 % (16.0-70.0); PLATELET COUNT 893 TH/MM3 (150-450); RED BLOOD COUNT 2.76 MIL/MM3 (4.50-5.90); RED CELL DISTRIBUTION WIDTH 14.5 % (11.6-17.2); WHITE BLOOD COUNT 14.8 TH/MM3 (4.0-11.0)
[2016-09-03 06:40] LABS: BICARBONATE 24.9 MEQ/L (21.0-32.0); POTASSIUM 4.1 MEQ/L (3.5-5.1)
--- NOTE | 2016-09-03 07:17 | PD.ORT.PN ---
Subjective Subjective Remarks POD 5 s/p ORIF left acetabulum POD 1 s/p ORIF right periprosthetic femur fx intubated/sedated. Objective Vitals Vital Signs Date Time Temp Pulse Resp B/P Pulse Ox O2 Delivery O2 Flow Rate FiO2 09/03/16 06:00 97 09/03/16 04:12 94 40 09/03/16 04:00 102.0 109 30 157/98 96 09/03/16 04:00 40 09/03/16 04:00 109 09/03/16 02:00 98 09/03/16 01:15 98 40 09/03/16 00:00 99.0 94 26 153/98 99 09/03/16 00:00 40 09/03/16 00:00 94 09/02/16 22:00 85 09/02/16 20:43 100 40 09/02/16 20:15 40 09/02/16 20:00 98.2 108 28 125/87 99 09/02/16 20:00 108 09/02/16 17:20 98 100 09/02/16 16:00 97 09/02/16 16:00 40 09/02/16 16:00 100.0 97 25 160/86 98 09/02/16 14:00 94 09/02/16 12:17 98 40 09/02/16 12:00 100.4 97 23 157/98 97 09/02/16 12:00 97 09/02/16 12:00 40 09/02/16 10:00 104 09/02/16 09:19 100 40 09/02/16 08:00 99.9 97 25 161/103 97 09/02/16 08:00 40 09/02/16 08:00 97 I/O 09/02/16 09/02/16 09/02/16 09/03/16 09/03/16 09/03/16 07:00 15:00 23:00 07:00 15:00 23:00 Intake Total 1186 ml 1057 ml 1077 ml 876 ml Output Total 2600 ml 1350 ml 750 ml 1050 ml Balance -1414 ml -293 ml 327 ml -174 ml Intake IV Total 965 ml 997 ml 1017 ml 756 ml Tube Feeding 101 ml 0 ml Tube Irrigant 120 ml 60 ml 60 ml 120 ml Output Urine Total 2200 ml 1150 ml 550 ml 900 ml Stool Total 400 ml 200 ml 200 ml 150 ml Drainage Total 0 ml 0 ml Result Diagram: 09/03/16 0605 09/03/16 0605 Imaging Last 24 hours Impressions Chest X-Ray 08/18/16 0600 Signed Impressions: Service Date/Time: Thursday, August 18, 2016 05:09 - CONCLUSION: 1. No acute cardiopulmonary disease. Leonidas Franco MD Objective Remarks RLE: dressing clean and dry. intact. no drainage LLE: dressing clean and dry. intact. no drainage Assessment & Plan Problem List: (1) Diffuse axonal brain injury (2) SAH (subarachnoid hemorrhage) (3) Nikky-prosthetic femur fracture at tip of prosthesis (4) Acetabulum fracture, left (5) Pubic ramus fracture (6) Lumbar transverse process fracture Assessment and Plan 1) Right Periprosthetic Femur Fx s/p ORIF - POD 1 -NWB -dressing changes POD 2 with primapore -daily dressing changes to knee/pin site with xeroform/4x4/tape 2) Left Acetabulum fx with hip dislocation s/p ORIF POD 5 -NWB -daily dressing changes -ortho surgical intervention complete Gordon Olea Sep 03, 2016 07:17
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
[2016-09-03] MEDS: CHLORHEXIDINE 0.12% (ORAL KIT) 15 ML CUP MT SCH ×2 (08:45→20:13)
[2016-09-03] MEDS: levETIRAcetam INJ 500 MG in SODIUM CHLORIDE 0.9% INJ 100 ML IV SCH ×2 (08:46→20:11)
[2016-09-03] MEDS: LEVOFLOXACIN 750 MG PREMIX INJ 150 ML IV SCH (08:46)
[2016-09-03] MEDS: DOCUSATE SODIUM 50 MG/SENNA 8.6 MG TAB PO SCH ×2 (08:47→20:10)
[2016-09-03] MEDS: MICAFUNGIN INJ 150 MG in SODIUM CHLORIDE 0.9% INJ 100 ML IV SCH (08:47)
[2016-09-03] MEDS: PANTOPRAZOLE SODIUM 40 MG VIAL IV SCH (08:48)
[2016-09-03] MEDS: SODIUM CHLORIDE 0.9% FLUSH 5 ML FLUSH IV FLUSH SCH ×2 (08:48→20:11)
[2016-09-03] MEDS: BACITRACIN TOP OINT 15 GM TUBE TOP SCH ×2 (08:48→21:00)
[2016-09-03] MEDS: LACTULOSE SYRUP 20 GM/30 ML CUP PO SCH (08:49)
[2016-09-03] MEDS: RESP: ALBUTEROL 2.5 MG/IPRATROPIUM 0.5 MG NEB (PRN) NEB (09:07)
[2016-09-03] MEDS: DIVALPROEX SODIUM SPRINKLES 125 MG CAP PEG SCH ×2 (10:00→20:12)
[2016-09-03] MEDS: PROPRANOLOL HCL 40 MG TAB PO SCH ×2 (10:00→20:11)
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
[2016-09-03] MEDS: HYOSCYAMINE 0.5 MG/ML AMP IVP PRN (13:35)
[2016-09-03] MEDS ORDERED: GADODIAMIDE PF 287 MG/ML 5 ML VIAL (for RAD MRI) IV ONE (14:16)
--- NOTE | 2016-09-03 14:44 | HHI.PR ---
Addendum to Inpatient Note Additional Information attempted to see the pt He is off the floor MRI will se tomorow fever 102 WBC up Sputum clx noted Dana Quinones MD Sep 03, 2016 14:44
[2016-09-03] MEDS ORDERED: hydrALAZINE HCL 20 MG/ML VIAL IV PUSH PRN (15:45)
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
[2016-09-03] MEDS ORDERED: PHARMACY ORDERED LAB XX ONE (17:45)
[2016-09-03] MEDS: ENOXAPARIN SODIUM 30 MG/0.3 ML SYRINGE SQ SCH (20:10)
[2016-09-03] MEDS: MAGNESIUM HYDROXIDE SUSP 30 ML CUP PO SCH (21:00)
[2016-09-04] VITALS (21 sets, daily range): BP systolic 139–158; BP diastolic 87–100; PULSE 82–102; RESP 21–38; TEMP 99.2–101; O2SAT 98–100
[2016-09-04 01:08] LABS: C. DIFF EPI 027 PRESUMPTIVE NEGATIVE (NEGATIVE); C. DIFF TOXIN PCR NEGATIVE (NEGATIVE)
[2016-09-04] MEDS: INSULIN ASPART SUPPLEMENTAL SCALE SQ SCH ×4 (01:52→19:49)
[2016-09-04] MEDS: VANCOMYCIN INJ 1,250 MG in SODIUM CHLOR 0.9% 250 ML INJ 250 ML IV SCH ×3 (01:52→17:44)
[2016-09-04] MEDS: METOPROLOL TARTRATE 25 MG TAB PO SCH ×4 (03:35→20:04)
[2016-09-04] MEDS: CHLORHEXIDINE GLUCONATE 2 % 1 PACK (2 CLOTHS) TOP SCH (03:35)
[2016-09-04] MEDS: oxyCODONE/ACETAMINOPHEN 5 MG/325 MG TAB PO PRN (05:12)
[2016-09-04] MEDS: PIPERACIL-TAZO 4.5 GM PREMIX 100 ML IV SCH ×4 (05:13→23:39)
[2016-09-04 05:46] LABS: AUTOMATED NEUTROPHIL # 10.7 TH/MM3 (1.8-7.7); BASOPHIL # 0.1 TH/MM3 (0-0.2); BASOPHIL % 0.8 % (0.0-2.0); EOSINOPHIL # 0.1 TH/MM3 (0-0.4); EOSINOPHIL % 0.7 % (0.0-4.0); HEMATOCRIT 22.7 % (39.0-51.0); HEMO FLAGS DIFF FINAL; LYMPH % 13.6 % (9.0-44.0); MEAN CELL VOLUME 82.3 FL (80.0-100.0); MEAN CORPUSCULAR HEMOGLOBIN 27.3 PG (27.0-34.0); MEAN CORPUSCULAR HGB CONC 33.2 % (32.0-36.0); MONO % 10.3 % (0.0-8.0); NEUT % 74.6 % (16.0-70.0); PLATELET COUNT 891 TH/MM3 (150-450); RED BLOOD COUNT 2.77 MIL/MM3 (4.50-5.90); RED CELL DISTRIBUTION WIDTH 14.9 % (11.6-17.2); WHITE BLOOD COUNT 14.3 TH/MM3 (4.0-11.0)
[2016-09-04 06:04] LABS: ALT (GPT) 30 U/L (12-78); ANION GAP 10 MEQ/L (5-15); AST (GOT) 43 U/L (15-37); BICARBONATE 25.3 MEQ/L (21.0-32.0); BLOOD UREA NITROGEN 13 MG/DL (7-18); CHLORIDE 102 MEQ/L (98-107); GLOMERULAR FILTRATION RATE 187 ML/MIN (>89); MAGNESIUM 2.1 MG/DL (1.5-2.5); POTASSIUM 3.3 MEQ/L (3.5-5.1); SODIUM (NA) 137 MEQ/L (136-145)
[2016-09-04 06:06] LABS: ALKALINE PHOSPHATASE 117 U/L (45-117)
[2016-09-04] MEDS: POTASSIUM CHLOR 40 MEQ PREMIX 100 ML IV PRN (06:23)
--- NOTE | 2016-09-04 08:28 | PD.ORT.PN ---
Subjective Subjective Remarks POD 6 s/p ORIF left acetabulum POD 2 s/p ORIF right periprosthetic femur fx intubated/sedated. Objective Vitals Vital Signs Date Time Temp Pulse Resp B/P Pulse Ox O2 Delivery O2 Flow Rate FiO2 09/04/16 08:26 40 09/04/16 08:23 100 40 09/04/16 06:32 88 09/04/16 06:00 98 09/04/16 04:14 99 40 09/04/16 04:00 100.7 88 26 157/96 100 09/04/16 04:00 40 09/04/16 04:00 88 09/04/16 02:00 84 09/04/16 01:24 99 40 09/04/16 00:00 40 09/04/16 00:00 99.2 82 25 151/89 100 09/04/16 00:00 82 09/03/16 22:00 72 09/03/16 20:16 100 40 09/03/16 20:00 100.0 82 20 157/95 100 09/03/16 20:00 82 09/03/16 20:00 40 09/03/16 18:00 92 09/03/16 16:58 24 09/03/16 16:21 100 40 09/03/16 16:00 40 09/03/16 16:00 100.2 93 25 161/100 100 09/03/16 16:00 93 09/03/16 15:00 25 09/03/16 14:35 100 40 09/03/16 14:00 106 09/03/16 13:30 100 09/03/16 12:00 99.9 106 25 154/103 97 09/03/16 12:00 106 09/03/16 12:00 40 09/03/16 11:32 99 40 09/03/16 10:00 118 09/03/16 08:53 98 40 I/O 09/03/16 09/03/16 09/03/16 09/04/16 09/04/16 09/04/16 07:00 15:00 23:00 07:00 15:00 23:00 Intake Total 876 ml 1157 ml 1034 ml 960 ml Output Total 1050 ml 1000 ml 800 ml 700 ml Balance -174 ml 157 ml 234 ml 260 ml Intake IV Total 756 ml 1037 ml 914 ml 714 ml Tube Feeding 126 ml Tube Irrigant 120 ml 120 ml 120 ml 120 ml Output Urine Total 900 ml 700 ml 700 ml 650 ml Stool Total 150 ml 300 ml 100 ml 50 ml Result Diagram: 09/04/16 0502 09/04/16 0502 Imaging Last 24 hours Impressions Chest X-Ray 08/18/16 0600 Signed Impressions: Service Date/Time: Thursday, August 18, 2016 05:09 - CONCLUSION: 1. No acute cardiopulmonary disease. Leonidas Franco MD Objective Remarks RLE: dressing clean and dry. intact. no drainage LLE: dressing clean and dry. intact. no drainage Assessment & Plan Problem List: (1) Diffuse axonal brain injury (2) SAH (subarachnoid hemorrhage) (3) Nikky-prosthetic femur fracture at tip of prosthesis (4) Acetabulum fracture, left (5) Pubic ramus fracture (6) Lumbar transverse process fracture Assessment and Plan 1) Right Periprosthetic Femur Fx s/p ORIF - POD 2 -NWB -dressing changes with primapore -daily dressing changes to knee/pin site with xeroform/4x4/tape 2) Left Acetabulum fx with hip dislocation s/p ORIF POD 6 -NWB -daily dressing changes -ortho surgical intervention complete Gordon Olea Sep 04, 2016 08:27
[2016-09-04 08:46] LABS: CRITICAL VALUE YES
[2016-09-04] MEDS: CHLORHEXIDINE 0.12% (ORAL KIT) 15 ML CUP MT SCH ×2 (10:15→19:49)
[2016-09-04] MEDS: LEVOFLOXACIN 750 MG PREMIX INJ 150 ML IV SCH (10:16)
[2016-09-04] MEDS: PANTOPRAZOLE SODIUM 40 MG VIAL IV SCH (10:18)
[2016-09-04] MEDS: LACTULOSE SYRUP 20 GM/30 ML CUP PO SCH (10:18)
[2016-09-04] MEDS: 3% SALINE INJ 500 ML IV-CENTRAL SCH ×2 (10:18→23:44)
[2016-09-04] MEDS: DOCUSATE SODIUM 50 MG/SENNA 8.6 MG TAB PO SCH ×2 (10:19→20:03)
[2016-09-04] MEDS: levETIRAcetam INJ 500 MG in SODIUM CHLORIDE 0.9% INJ 100 ML IV SCH ×2 (10:19→20:02)
[2016-09-04] MEDS: ENOXAPARIN SODIUM 30 MG/0.3 ML SYRINGE SQ SCH ×2 (10:20→20:02)
[2016-09-04] MEDS: BACITRACIN TOP OINT 15 GM TUBE TOP SCH ×2 (10:20→21:00)
[2016-09-04] MEDS: DIVALPROEX SODIUM SPRINKLES 125 MG CAP PEG SCH ×2 (10:20→20:03)
[2016-09-04] MEDS: PROPRANOLOL HCL 40 MG TAB PO SCH ×2 (10:20→20:03)
[2016-09-04] MEDS: SODIUM CHLORIDE 0.9% FLUSH 5 ML FLUSH IV FLUSH SCH ×2 (10:21→21:00)
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
[2016-09-04] MEDS: MICAFUNGIN INJ 150 MG in SODIUM CHLORIDE 0.9% INJ 100 ML IV SCH (11:24)
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
[2016-09-04] MEDS: ACETAMINOPHEN 650 MG/20.3 ML UDC TUBE PRN (15:51)
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
[2016-09-04] MEDS: MAGNESIUM HYDROXIDE SUSP 30 ML CUP PO SCH (20:02)
[2016-09-05] VITALS (10 sets, daily range): BP systolic 152–157; BP diastolic 90–102; PULSE 84–96; RESP 20–24; TEMP 98.8–99.6; O2SAT 100
[2016-09-05] MEDS: VANCOMYCIN INJ 1,250 MG in SODIUM CHLOR 0.9% 250 ML INJ 250 ML IV SCH ×2 (01:24→09:12)
[2016-09-05] MEDS: INSULIN ASPART SUPPLEMENTAL SCALE SQ SCH ×2 (02:00→08:00)
[2016-09-05] MEDS: METOPROLOL TARTRATE 25 MG TAB PO SCH ×2 (03:29→08:43)
[2016-09-05] MEDS: CHLORHEXIDINE GLUCONATE 2 % 1 PACK (2 CLOTHS) TOP SCH (04:16)
[2016-09-05 04:32] LABS: AUTOMATED NEUTROPHIL # 9.3 TH/MM3 (1.8-7.7); BASOPHIL # 0.1 TH/MM3 (0-0.2); BASOPHIL % 0.8 % (0.0-2.0); EOSINOPHIL # 0.2 TH/MM3 (0-0.4); EOSINOPHIL % 1.5 % (0.0-4.0); LYMPH % 13.9 % (9.0-44.0); LYMPHOCYTE # 1.7 TH/MM3 (1.0-4.8); MEAN CELL VOLUME 83.1 FL (80.0-100.0); MEAN CORPUSCULAR HEMOGLOBIN 27.1 PG (27.0-34.0); MEAN CORPUSCULAR HGB CONC 32.6 % (32.0-36.0); MONO % 9.2 % (0.0-8.0); NEUT % 74.6 % (16.0-70.0); PLATELET COUNT 747 TH/MM3 (150-450); RED BLOOD COUNT 2.49 MIL/MM3 (4.50-5.90); RED CELL DISTRIBUTION WIDTH 15.1 % (11.6-17.2); WHITE BLOOD COUNT 12.5 TH/MM3 (4.0-11.0)
[2016-09-05 04:33] LABS: HEMO FLAGS DIFF FINAL
[2016-09-05 04:35] LABS: HEMATOCRIT 20.7 % (39.0-51.0)
[2016-09-05 04:59] LABS: ALT (GPT) 29 U/L (12-78); ANION GAP 9 MEQ/L (5-15); AST (GOT) 36 U/L (15-37); BICARBONATE 24.9 MEQ/L (21.0-32.0); BLOOD UREA NITROGEN 12 MG/DL (7-18); CHLORIDE 109 MEQ/L (98-107); GLOMERULAR FILTRATION RATE 183 ML/MIN (>89); MAGNESIUM 2.1 MG/DL (1.5-2.5); POTASSIUM 3.3 MEQ/L (3.5-5.1); SODIUM (NA) 143 MEQ/L (136-145)
[2016-09-05 05:02] LABS: ALKALINE PHOSPHATASE 106 U/L (45-117); TOTAL BILIRUBIN ADULT 0.8 MG/DL (0.2-1.0)
[2016-09-05] MEDS: PIPERACIL-TAZO 4.5 GM PREMIX 100 ML IV SCH ×2 (06:00→11:16)
[2016-09-05] MEDS: POTASSIUM CHLOR 40 MEQ PREMIX 100 ML IV PRN (06:01)
--- NOTE | 2016-09-05 06:24 | RADRPT ---
EXAM DATE/TIME: 09/05/2016 03:44 [facility] COMPARISON: CHEST SINGLE AP, September 01, 2016, 5:18. INDICATIONS : Shortness of breath. MEDICAL HISTORY : None. SURGICAL HISTORY : None. ENCOUNTER: Subsequent ACUITY: 1 month PAIN SCORE: Non-responsive. LOCATION: chest FINDINGS: Tracheostomy is stable. Left subclavian central line is stable. There is persistent perihilar and med ial basilar parenchymal opacity. Cardiac contours are stable. CONCLUSION: Persistent bilateral parenchymal opacities Arnaldo Rollins MD on September 05, 2016 at 6:21 Board Certified Radiologist. This report was verified electronically.
[2016-09-05] MEDS: levETIRAcetam INJ 500 MG in SODIUM CHLORIDE 0.9% INJ 100 ML IV SCH (08:42)
[2016-09-05] MEDS: PANTOPRAZOLE SODIUM 40 MG VIAL IV SCH (08:43)
[2016-09-05] MEDS: LACTULOSE SYRUP 20 GM/30 ML CUP PO SCH (08:43)
[2016-09-05] MEDS: SODIUM CHLORIDE 0.9% FLUSH 5 ML FLUSH IV FLUSH SCH (08:43)
[2016-09-05] MEDS: DOCUSATE SODIUM 50 MG/SENNA 8.6 MG TAB PO SCH (08:43)
[2016-09-05] MEDS: PROPRANOLOL HCL 40 MG TAB PO SCH (08:43)
[2016-09-05] MEDS: DIVALPROEX SODIUM SPRINKLES 125 MG CAP PEG SCH (08:43)
[2016-09-05] MEDS: LEVOFLOXACIN 750 MG PREMIX INJ 150 ML IV SCH (08:44)
[2016-09-05] MEDS: BACITRACIN TOP OINT 15 GM TUBE TOP SCH (08:44)
[2016-09-05] MEDS: CHLORHEXIDINE 0.12% (ORAL KIT) 15 ML CUP MT SCH (08:44)
[2016-09-05] MEDS: ENOXAPARIN SODIUM 30 MG/0.3 ML SYRINGE SQ SCH (09:00)
[2016-09-05] MEDS: MICAFUNGIN INJ 150 MG in SODIUM CHLORIDE 0.9% INJ 100 ML IV SCH (09:12)
[2016-09-05] MEDS ORDERED: PANT40P IV (10:28)
[2016-09-05] MEDS ORDERED: CHLO25TA5 PO (10:28)
[2016-09-05] MEDS ORDERED: DIVA125C PEG (10:28)
[2016-09-05] MEDS ORDERED: ENOX30P SQ (10:28)
[2016-09-05] MEDS ORDERED: ALBU0.08 NEB (10:28)
[2016-09-05] MEDS ORDERED: VANC1000P IV (10:28)
[2016-09-05] MEDS ORDERED: LEVA500T PO (10:28)
[2016-09-05] MEDS ORDERED: MILKSUS PO (10:28)
[2016-09-05] MEDS ORDERED: OXYC1TAB63 PO (10:28)
[2016-09-05] MEDS ORDERED: ZOSY3.375P IV (10:28)
[2016-09-05] MEDS ORDERED: [UNRECOGNIZED DRUG - CODE] IV (10:28)
[2016-09-05] MEDS ORDERED: HYOS.5P IVP (10:28)
[2016-09-05] MEDS ORDERED: PROP40TA3 PO (10:28)
[2016-09-05] MEDS ORDERED: SENN1TAB PO (10:28)
[2016-09-05] MEDS ORDERED: LACT10SO PO (10:28)
[2016-09-05] MEDS ORDERED: METO25TA3 PO (10:28)
[2016-09-05] MEDS ORDERED: ACET160S3 TUBE (10:28)
[2016-09-05] MEDS ORDERED: HYDR20IN4 IV PUSH (10:28)
[2016-09-05] MEDS: ACETAMINOPHEN 650 MG/20.3 ML UDC TUBE PRN (11:16)
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
[2016-09-05 13:18] LABS: HEMATOCRIT 22.8 % (39.0-51.0); REVIEW FLAG FINAL
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
[2016-09-08] MEDS ORDERED: PHARMACY ORDERED LAB XX ONE (01:45)
== END 2016-09-05 14:50 | DRG 3 ==
LOC: NEPI 20:13 → EDBD 20:37 → NEDA 20:37 → N03B 20:56
PROVIDERS: ADMIT Surgery; ATTEND Surgery
PROC: 4A103BD Monitoring of Intracranial Pressure, Percutaneous Approach (ICD-10-PCS; principal; 2016-08-16)
PROC: 0BH17EZ Insertion of Endotracheal Airway into Trachea, Via Natural or Artificial Opening (ICD-10-PCS; 2016-08-16)
PROC: 5A1955Z Respiratory Ventilation, Greater than 96 Consecutive Hours (ICD-10-PCS; 2016-08-16)
PROC: 05HM33Z Insertion of Infusion Device into Right Internal Jugular Vein, Percutaneous Approach (ICD-10-PCS; 2016-08-16)
PROC: 0SSBXZZ Reposition Left Hip Joint, External Approach (ICD-10-PCS; 2016-08-18)
PROC: 0SSB34Z Reposition Left Hip Joint with Internal Fixation Device, Percutaneous Approach (ICD-10-PCS; 2016-08-19)
PROC: 0W9B30Z Drainage of Left Pleural Cavity with Drainage Device, Percutaneous Approach (ICD-10-PCS; 2016-08-24)
PROC: 02HV33Z Insertion of Infusion Device into Superior Vena Cava, Percutaneous Approach (ICD-10-PCS; 2016-08-24)
PROC: 0B113F4 Bypass Trachea to Cutaneous with Tracheostomy Device, Percutaneous Approach (ICD-10-PCS; 2016-08-28)
PROC: 5A1955Z Respiratory Ventilation, Greater than 96 Consecutive Hours (ICD-10-PCS; 2016-08-28)
PROC: 0BJ08ZZ Inspection of Tracheobronchial Tree, Via Natural or Artificial Opening Endoscopic (ICD-10-PCS; 2016-08-28)
PROC: 0BCB8ZZ Extirpation of Matter from Left Lower Lobe Bronchus, Via Natural or Artificial Opening Endoscopic (ICD-10-PCS; 2016-08-28)
PROC: 0BC68ZZ Extirpation of Matter from Right Lower Lobe Bronchus, Via Natural or Artificial Opening Endoscopic (ICD-10-PCS; 2016-08-28)
PROC: 0DH63UZ Insertion of Feeding Device into Stomach, Percutaneous Approach (ICD-10-PCS; 2016-08-28)
PROC: 0QS504Z Reposition Left Acetabulum with Internal Fixation Device, Open Approach (ICD-10-PCS; 2016-08-29)
PROC: 0QP504Z Removal of Internal Fixation Device from Left Acetabulum, Open Approach (ICD-10-PCS; 2016-08-29)
PROC: 0QS804Z Reposition Right Femoral Shaft with Internal Fixation Device, Open Approach (ICD-10-PCS; 2016-09-02)
DX: S06.2X6A Diffuse traumatic brain injury with loss of consciousness greater than 24 hours without return to pre-existing conscious level with patient surviving, initial encounter (principal); R57.1 Hypovolemic shock; J15.6 Pneumonia due to other Gram-negative bacteria; J15.212 Pneumonia due to Methicillin resistant Staphylococcus aureus; S72.341A Displaced spiral fracture of shaft of right femur, initial encounter for closed fracture; J15.4 Pneumonia due to other streptococci; S36.039A Unspecified laceration of spleen, initial encounter; S02.40FA Zygomatic fracture, left side, initial encounter for closed fracture; S32.422A Displaced fracture of posterior wall of left acetabulum, initial encounter for closed fracture; J96.01 Acute respiratory failure with hypoxia; S32.059A Unspecified fracture of fifth lumbar vertebra, initial encounter for closed fracture; S73.015A Posterior dislocation of left hip, initial encounter; K56.7 Ileus, unspecified; M97.01XA Periprosthetic fracture around internal prosthetic right hip joint, initial encounter; S32.591A Other specified fracture of right pubis, initial encounter for closed fracture; S32.312A Displaced avulsion fracture of left ilium, initial encounter for closed fracture; J95.811 Postprocedural pneumothorax; S06.6X6A Traumatic subarachnoid hemorrhage with loss of consciousness greater than 24 hours without return to pre-existing conscious level with patient surviving, initial encounter; R13.10 Dysphagia, unspecified; B18.2 Chronic viral hepatitis C; R40.2432 Glasgow coma scale score 3-8, at arrival to emergency department; V23.4XXA Motorcycle driver injured in collision with car, pick-up truck or van in traffic accident, initial encounter; Y92.410 Unspecified street and highway as the place of occurrence of the external cause; Z96.641 Presence of right artificial hip joint
CPT/HCPCS: 31500; 36430; 36556; 36600; 36620; 61210; 70450; 70486; 70553; 71010; 71260; 72125; 72128; 72131; 72170; 72190; 73120; 73551; 73552; 74000; 74177; 76000; 76937; 80048; 80053; 80061; 80202; 80307; 80320; 81001; 82435; 82565; 82805; 82947; 82948; 83690; 83735; 83930; 84100; 84132; 84295; 84520; 85007; 85014; 85018; 85025; 85027; 85610; 85730; 86403; 86850; 86900; 86901; 86920; 87040; 87070; 87077; 87086; 87147; 87186; 87205; 87493; 87641; 90471; 93005; 94002; 94003; 94640; 94664; 94770; 95819; 96374; 99291; A7521; A9579; C1713; C1769; C9113; E0880; G0390; J0131; J0171; J0360; J0461; J0690; J0696; J1250; J1580; J1644; J1650; J1940; J1953; J1956; J1980; J2150; J2248; J2250; J2370; J2543; J2765; J2997; J3010; J3370; J3480; J7030; J7040; J7050; J7120; L0150; L0172; L1830; P9016; P9045; Q9967